=== PATIENT | male | born 1960 | race Asian ===

== ENCOUNTER 2020-10-24 09:46 | Outpatient (RCR) | payer OTHER, SELFPAY ==
--- NOTE | 2020-10-24 12:22 | MHC.PT.EP ---
[facility] [place] Office [place] Office [place] Office [address] [place] [address] Dr Nathalie Feldman [address] [phone] F: [phone] F: [phone] F: [phone] F: [phone] Physical Therapy Plan of Care Date of Evaluation: 10/24/20 Date of Surgery: NA Diagnosis: STRAIN OF MUSCLE, FASCIA AND TENDON OF OTHER PARTS OF BICEPS, RIGHT ARM Assessment: Pt IS 60 YO M REFERRED TO PT FROM DR SLOAN WITH R BICEP STRAIN WHICH HAPPENED LAST THURSDAY WHILE LIFTING A HEAVY BAG OF ONIONS. Pt PRESENTS WITH TRUDY DEFORMITY WITH LIMITED STRENGTH IN R UE. REPORTS PAIN R BICEP MM WITH TTP. ROM IN ELBOW FOR FLEX AND EXT IS WITHIN NORMAL LIMITS, BUT THERE IS PAIN AT BOTH END RANGES. SPOKE WITH DR SLOAN AND ZAHRA (AT [facility]) RE MRI AND ORTHO CONSULT CARLEY (IF SURGERY IS INDICATED, IT NEEDS TO BE DONE WITHIN ABOUT A 2 WEEK TIME FRAME). Pt DID HAVE SOME RELIEF WITH ST WORK, IASTM AND KT FOR R BICEP. SHOULD BENEFIT FROM PT TO HELP IMPROVE R UE FUNCTIONAL MOBILITY WHETHER OR NOT HE HAS SURGERY. Frequency and Duration: The patient will be seen 2X/WK X 4 WKS Short Term Goals: 1. DECREASED PAIN R ELBOW WITH FULL ELBOW FLEX AND EXT 2. Pt TO BEGIN GENTLE ROM STRETCHES FOR R SHLDER INDICATED 3. 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 INCREASED STRENGTH R UE AT LEAST 1 MM GRADE 2. I HEP WITH DC EX PLAN 3. R SHLDER ROM FOR FLEX AND ABD TO AT LEAST 160 DEGREES EA Treatment Plan: Modalities to reduce pain, spasms and effusion. Manual therapy to restore motion and function. Therapeutic exercise to improve strength and flexibility. Neuromuscular re-education for posture and balance. Therapeutic activities to return to functional activities of daily living. Electronically signed by: LAURA ROBERT PT Please sign and return to therapist. Thank you for your referral.
--- NOTE | 2020-10-24 12:22 | MHC.PT.PR ---
[facility] [place] Office [place] Office [place] Office [address] Nathalie Feldman [address] [phone] F: [phone] F: [phone] F: [phone] F: [phone] Physical Therapy Progress Note Diagnosis: STRAIN OF MUSCLE, FASCIA AND TENDON OF OTHER PARTS OF BICEPS, RIGHT ARM Date of Surgery: NA Date of Evaluation: 10/24/20 Treatments to Date: 1 Cancellations to Date: No Shows to Date: Subjective: Pt REPORTS LIFTED HEAVY BAG LAST THURSDAY AND FELT PAIN R BICEPS. Pain Score and Location: 4 R BICEPS Objective Measures: PT EVAL Assessment: Pt IS 60 YO RHD M REFERRED TO PT FROM DR SLOAN WITH R BICEPS STRAIN WHICH HAPPENED LAST THURSDAY WHILE LIFTIN A HEAVY BAG OF ONIONS. Pt PRESENTS WITH TRUDY DEFORMITY WITH LIMITED STRENGTH IN R UE. REPORTS PAIN R BICEP MM WITH TTP. ROM R ELBOW FOR FLEX AND EXT IS WNLS BUT THERE IS PAIN AT BOTH END RANGES. SPOKE WITH DR SLOAN AND ZAHRA ([facility]) RE MRI/ORTHO CONSULT CARLEY (IF SURGERY IS INDICATED IT NEEDS TO BE DONE WITHIN A 2 WEEK TIME FRAME). Pt DID HAVE SOME RELIEF WITH ST WORK/IASTM AND KT R BICEP. Pt SHOULD BENEFIT FROM PT TO HELP IMPROVE R UE FUNCTIONAL MOBILITY WHETHER OR NOT HE HAS SURGERY PT Plan: Frequency and Duration: The patient will be seen 2X/WK X 4 WKS Treatment Plan: Therapeutic Exercise Dynamic Therapeutic Activities Neuromuscular Re-ed Manual Therapies Taping Home Exercise Program Patient Education Hot or Cold Pack Reviewed/ Agreed with Student Documentation: Therapist: Thank you once again for your referral.
--- NOTE | 2020-11-21 15:25 | MHC.PT.DC ---
[facility] [place] Office [place] Office [place] Office [address] Nathalie Feldman [address] [phone] F: [phone] F: [phone] F: [phone] F: [phone] Physical Therapy Discharge Report Diagnosis: STRAIN OF MUSCLE, FASCIA AND TENDON OF OTHER PARTS OF BICEPS, RIGHT ARM Date of Surgery: NA Date of Evaluation: 10/24/20 Date of Discharge: 11/21/20 Treatments to Date: 1 Cancellations to Date: No Shows to Date: Discharge Status: Patient Elected to Stop Discharge Summary: Pt SEEN FOR IN EVAL ONLY. NO FURTHER APPTS. THIS PT CALLED Pt ON 11/21/20. HE SAYS HE IS FEELING BETTER AND DOES NOT NEED ANY MORE PT. AT INIT EVAL:Pt IS 60 YO RHD M REFERRED TO PT FROM DR SLOAN WITH R BICEPS STRAIN WHICH HAPPENED LAST THURSDAY WHILE LIFTIN A HEAVY BAG OF ONIONS. Pt PRESENTS WITH TRUDY DEFORMITY WITH LIMITED STRENGTH IN R UE. REPORTS PAIN R BICEP MM WITH TTP. ROM R ELBOW FOR FLEX AND EXT IS WNLS BUT THERE IS PAIN AT BOTH END RANGES. SPOKE WITH DR SLOAN AND ZAHRA ([facility]) RE MRI/ORTHO CONSULT CARLEY (IF SURGERY IS INDICATED IT NEEDS TO BE DONE WITHIN A 2 WEEK TIME FRAME). Pt DID HAVE SOME RELIEF WITH ST WORK/IASTM AND KT R BICEP. Pt SHOULD BENEFIT FROM PT TO HELP IMPROVE R UE FUNCTIONAL MOBILITY WHETHER OR NOT HE HAS SURGERY Electronically signed by: LAURA ROBERT PT Please sign and return to therapist. Thank you for your referral.
--- NOTE | 2020-11-21 15:25 | MHC.PT.DC ---
[facility] [place] Office [place] Office [place] Office [address] Nathalie Feldman [address] [phone] F: [phone] F: [phone] F: [phone] F: [phone] Physical Therapy Discharge Report Diagnosis: STRAIN OF MUSCLE, FASCIA AND TENDON OF OTHER PARTS OF BICEPS, RIGHT ARM Date of Surgery: NA Date of Evaluation: 10/24/20 Date of Discharge: 11/21/20 Treatments to Date: 1 Cancellations to Date: No Shows to Date: Discharge Status: Patient Elected to Stop Discharge Summary: Pt SEEN FOR IN EVAL ONLY. NO FURTHER APPTS. THIS PT CALLED Pt ON 11/21/20. HE SAYS HE IS FEELING BETTER AND DOES NOT NEED ANY MORE PT. AT INIT EVAL:Pt IS 60 YO RHD M REFERRED TO PT FROM DR SLOAN WITH R BICEPS STRAIN WHICH HAPPENED LAST THURSDAY WHILE LIFTIN A HEAVY BAG OF ONIONS. Pt PRESENTS WITH TRUDY DEFORMITY WITH LIMITED STRENGTH IN R UE. REPORTS PAIN R BICEP MM WITH TTP. ROM R ELBOW FOR FLEX AND EXT IS WNLS BUT THERE IS PAIN AT BOTH END RANGES. SPOKE WITH DR SLOAN AND ZAHRA ([facility]) RE MRI/ORTHO CONSULT CARLEY (IF SURGERY IS INDICATED IT NEEDS TO BE DONE WITHIN A 2 WEEK TIME FRAME). Pt DID HAVE SOME RELIEF WITH ST WORK/IASTM AND KT R BICEP. Pt SHOULD BENEFIT FROM PT TO HELP IMPROVE R UE FUNCTIONAL MOBILITY WHETHER OR NOT HE HAS SURGERY Electronically signed by: LAURA ROBERT PT Please sign and return to therapist. Thank you for your referral.
== END 2020-11-21 15:26 | disposition other institution (70) ==
LOC: HO.PTWFD 09:46
PROVIDERS: Visit Provider Family Medicine
DX: S46.211D Strain of muscle, fascia and tendon of other parts of biceps, right arm, subsequent encounter (principal)
CPT/HCPCS: 97140; 97162; 97535

== ENCOUNTER → 2020-10-25 12:55 | Outpatient (BNVA) | payer OTHER, SELFPAY | PROVIDERS: PCP Family Medicine; Visit Provider Orthopaedic Surgery | DX: Z13.89 Encounter for screening for other disorder (principal) | CPT/HCPCS: 99202 ==

== ENCOUNTER 2020-10-26 14:09 | Outpatient (REF) | payer OTHER, SELFPAY | END 2020-10-26 14:10 | disposition home or self-care (01) | LOC: HO.LNP 14:09 | PROVIDERS: Visit Provider Family Medicine | DX: Z20.822 Contact with and (suspected) exposure to COVID-19 (principal); R05 Cough | CPT/HCPCS: U0003; U0005 ==

== ENCOUNTER 2020-11-08 09:55 | Outpatient (REF) | payer OTHER, SELFPAY ==
[2020-11-08 11:54] LABS: Erythrocyte Sedimentation Rate 5 MM/HR (0-15)
== END 2020-11-08 09:56 | disposition home or self-care (01) ==
LOC: HO.WFDLDS 09:55
PROVIDERS: Visit Provider Family Medicine
DX: Z00.00 Encounter for general adult medical examination without abnormal findings (principal)
CPT/HCPCS: 36415; 85652

== ENCOUNTER 2023-08-03 13:04 | Outpatient (REF) | payer OTHER, SELFPAY ==
--- NOTE | 2023-08-04 09:08 | MHC.AU.MED ---
Medical Clearance for Hearing Instrumentation Date: 08/03/23 Patient Name: Sofi Sol Date of : 1960 Primary Care Provider: Riccardo Verma MD We have seen your patient on 08/03/23 and have determined that they are a candidate for amplification (See accompanying report). Specifically, they would benefit from: Hearing aid use in both ears There is a statute that addresses Medical Evaluation Requirements prior to fitting a patient with a hearing aid. According to [place] statute 265 CMR:6.03(1), (a) General. Except as provided in 265 CMR 6.03(1)(b), a hearing officer shall not sell a hearing aid unless the prospective user has presented to the hearing officer a written statement signed by a licensed physician that states that the patient's hearing loss has been medically evaluated and the patient may be considered a candidate for a hearing aid. The medical evaluation must have taken place within the preceding six months. Please note: Due to the [place] Statute referenced above, we cannot accept a signature other than that of a licensed physician. HOP SEPARATOR and PA signatures cannot be accepted. I am in agreement with the above recommendation. There is no medical contraindication for hearing instrumentation. Physician Signature Date Physician Name (Printed)
--- NOTE | 2023-08-04 09:32 | MHC.AU.HA1 ---
Hearing Aid Evaluation Date of Visit: 08/03/23 Historical Information: Description of Hearing: Mild sloping to moderate sensorineural hearing loss, bilaterally Summary: Sofi is hesitant towards hearing aids; however, he is willing to try to help ease some of his communication difficulties. Sofi reported his insurance will be changing in October as he turns 63. He is unsure of which specific insurance he will have at that time. His current insurance covers hearing aids; however, discussed the need to be fit before his insurance changes and that depending on his future insurance, there may be [id number] after the first year. Sofi currently works at a [employer]. Although it is not particularly busy, he needs to communicate with customers. Otherwise, he primarily stays home, interacts with his and children, and watches television. Sofi was open to trialling any style of device that was recommended. Will trial rechargeable RITEs compatible with his iPhone, starting with domes; however, discussed option to add custom ear mold, if needed. Hearing Aid Prescription: Based on the individual?s shared listening needs, communication environments, dexterity, desire for connectivity, and personal preferences, the following prescription for amplification has been made: Right ear: Make, Model, Color: Oticon REAL 2 miniRITE-R Color: Steel Carpenter Battery Size: Rechargeable Load Test Mechanic/Slim Tube: 2/85 Type of Earmold/Dome/CShell/SlimTip: 8 mm double alicea dome Left ear: Left ear prescription to be same as Right Hearing Aid above: Make, Model, Color: Oticon REAL 2 miniRITE-R Color: Steel Carpenter Battery Size: Rechargeable Load Test Mechanic/Slim Tube: 2/85 Type of Earmold/Dome/CShell/SlimTip: 8 mm double alicea dome Accessories/Assistive Technology: Corporate Concierge Plan of Care: Patient wishes to purchase hearing aids as prescribed Action Taken/Action Needed: Medical Clearance to be requested from PCP/ENT. Hearing Instrument Fitting to be scheduled when materials arrive Primary Diagnosis: H90.3 Bilateral Sensorineural Hearing Loss Signature: Provider: Dilshad Guadarrama, [facility]
== END 2023-08-03 13:05 | disposition home or self-care (01) ==
LOC: HO.SH 13:04
PROVIDERS: Visit Provider Hospitalist
DX: Z01.118 Encounter for examination of ears and hearing with other abnormal findings (principal); Z46.1 Encounter for fitting and adjustment of hearing aid; H90.3 Sensorineural hearing loss, bilateral
CPT/HCPCS: 92557; 92591

== ENCOUNTER 2023-09-23 15:02 | Outpatient (REF) | payer MEDICAID, SELFPAY ==
--- NOTE | 2023-09-24 08:44 | MHC.AU.HA2 ---
Hearing Instrument Fitting- Adult- Binaural Date of Visit: 09/23/23 Hearing Instruments Dispensed: Right Ear: Make, Model, Color, Serial Number: Oticon REAL 2 miniRITE-R Madi Carpenter SN [id number] Playground Official Repair Warranty: 10/09/2026 Playground Official Loss and Damage Warranty: 10/09/2026 [facility] Service Plan: 09/23/24 Battery Size: Rechargeable Sales Expert/Slim Tube: 2/85 Earmold/Dome/CShell/SlimTip: 8 mm double alicea dome Type of Wax Guard: ProWax miniFit Left Ear: Make, Model, Color, Serial Number: Oticon REAL 2 miniRITE-R Madi Carpenter SN [id number] Playground Official Repair Warranty: 10/09/2026 Playground Official Loss and Damage Warranty: 10/09/2026 [facility] Service Plan: 09/23/24 Battery Size: Rechargeable Sales Expert/Slim Tube: 2/85 Earmold/Dome/CShell/SlimTip: 8 mm double alicea dome Type of Wax Guard: ProWax miniFit Accessories/Assistive Technology: Oticon Tablet Repair SN [id number] Summary of Fitting: Sofi visited for fitting with Real 2 miniRITE Rs. Programmed and verified to DSL 5.0 targets, decreased to level 2 with auto adjust on for 1 month. Reviewed basics of use, cleaning, charging, insertion/removal. Encouraged to wear as much as possible and reasons to do so, as he stated he plans to only wear for TV. Will discuss pairing with phone at follow up appointment. Return in 2-3 weeks for follow up. Recommendations: Recommendations: A hearing instrument follow-up is recommended in 2-3 weeks. Diagnosis Code(s): Primary Diagnosis: H90.3 Bilateral Sensorineural Hearing Loss Signature: Provider: Ronnie Burnham, CCC-A
== END 2023-09-23 15:03 | disposition home or self-care (01) ==
LOC: HO.HAP 15:02
PROVIDERS: Visit Provider Hospitalist
DX: Z46.1 Encounter for fitting and adjustment of hearing aid (principal); H90.3 Sensorineural hearing loss, bilateral
CPT/HCPCS: V5011; V5020; V5160; V5261

== ENCOUNTER 2023-10-16 13:40 | Outpatient (REF) | payer MEDICARE, MEDICAID, SELFPAY | END 2023-10-16 13:41 | disposition home or self-care (01) | LOC: HO.HAP 13:40 | PROVIDERS: Visit Provider Family Medicine | DX: Z13.89 Encounter for screening for other disorder (principal) ==

== ENCOUNTER 2024-02-16 10:41 | Outpatient (REF) | payer MEDICARE, MEDICAID, SELFPAY ==
--- NOTE | ~2024-02-16 | XR_ITS ---
EXAMINATION: XR KNEE, RIGHT CLINICAL INFORMATION: Pain in right knee. COMPARISON: None available. TECHNIQUE: Three views of the right knee. FINDINGS: Small joint effusion. Ocgfzdor-ot-okdwvc narrowing of the medial compartment with subchondral sclerosis and small medial marginal osteophytes. Tiny calcifications in the soft tissues medial to the medial femoral condyle. Subtle subchondral lucency along the medial femoral condyle, possibly related to an osteochondral defect. Tiny posterior patellar osteophytes. XR/XR knee RT 3V IMPRESSION: 1. Anprfjpo-el-hwkyme degenerative changes in the medial compartment. 2. Subtle subchondral lucency along the medial femoral condyle, possibly related to an osteochondral defect.
== END 2024-02-16 10:42 | disposition home or self-care (01) ==
LOC: HO.HOSX 10:41
PROVIDERS: Visit Provider Orthopaedic Surgery
DX: M25.561 Pain in right knee (principal)
CPT/HCPCS: 73562

== ENCOUNTER 2024-02-17 09:06 | Outpatient (AMB) | payer MEDICARE, MEDICAID, SELFPAY ==
--- NOTE | 2024-02-17 09:12 | A.OFFVIS_ITS ---
Intake Visit Reasons: Right knee pain Intake Note: Sofi is a 63 year old male who presents to the office today with complaints of progressively worsening right knee pain and giving way. The patient states that his symptoms have been getting worse for almost 1 year. Most of the pain is along the medial aspect of his knee. He states that his right knee will give out several times per day. Has tried Tylenol and anti-inflammatory medicines which gave him minimal relief. He has also done 9 weeks of physical therapy which aggravated his pain. He was sent to physical therapy by his primary care doctor. He has failed the last 6 weeks of conservative treatment as well. Was given a cortisone injection several months ago which gave him no relief. The patient states that his pain is present every day. At this point the patient's right knee pain is interfering with his activities of daily living and his ability to sleep well through the night. The patient states that he was scheduled to undergo an MRI of his right knee but that there was ?an insurance issue?. 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- [employer] Physical Exam Const Other: Well-nourished well-developed very friendly male awake alert and oriented x3 in no acute distress Extrem Other: Bilateral lower extremity examination shows good capillary refill, no skin lesions noted, normal sensation light touch Right knee examination shows a minimal effusion, mild crepitus with range of motion, tenderness along his medial joint line, positive Errol's test, no instability Results Reviewed Results Reviewed: X-rays of the patient's right knee show mild to moderate joint space narrowing, no acute bony abnormalities, possible avascular necrosis lesion of the medial femoral condyle Assessment & Plan Assessment & Plan (1) Right knee pain: Code(s): M25.561 - Pain in right knee Category: Medical Plan Mr. 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 Thus, I will send the patient for an MRI of his right knee for further evaluation. I will see him back once the MRI is completed to discuss the findings and treatment options. Feel free to call me at any time should questions regarding his orthopedic management arise. I spent 20 minutes in reviewing the patient's records and imaging studies, seeing the patient and documenting in the medical record. Orders: Orders XR knee RT 3V Today M25.561 - Pain in right knee MR knee RT wo con Today M25.561 - Pain in right knee Coding Level of Care Code Est Pt Level 3 (28791) Diagnoses Right knee pain M25.561
== END 2024-02-17 09:34 | disposition home or self-care (01) ==
PROVIDERS: PCP Family Medicine; Visit Provider Orthopaedic Surgery
DX: M25.561 Pain in right knee (principal)
CPT/HCPCS: 99213

== ENCOUNTER 2024-02-17 09:40 | Outpatient (REF) | payer MEDICARE, MEDICAID, SELFPAY | END 2024-02-17 09:41 | disposition home or self-care (01) | LOC: HO.HOSX 09:40 | PROVIDERS: Visit Provider Orthopaedic Surgery | DX: M25.561 Pain in right knee (principal) | CPT/HCPCS: 99212 ==

== ENCOUNTER 2024-03-02 14:29 | Outpatient (AMB) | payer MEDICARE, MEDICAID, SELFPAY ==
--- NOTE | 2024-03-02 14:32 | A.OFFVIS_ITS ---
Intake Visit Reasons: OV - Right Knee MRI Review - [facility] Intake Note: Sofi is a 63 year old male who presents with complaints of progressively worsening right knee pain. The patient describes his pain as sharp and severe in nature. Most of the pain is along the medial aspect of his knee. His pain has gotten worse over the last year in spite of continued non operative treatments. He has tried Tylenol and anti-inflammatory medicines which gave him minimal relief. He has also done physical therapy exercises which aggravated his pain. He has failed the last 3 months of conservative treatment. He has had injections in the past which gave him no relief. The patient has difficulty walking even short distances because of his pain. At this point his right knee pain is interfering with his activities of daily living and his ability to sleep well through the night. 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 [employer] Physical Exam Const Other: Well-nourished well-developed very friendly male awake alert and oriented x3 in no acute distress Extrem Other: Bilateral lower extremity examination shows good capillary refill, no skin lesions noted, normal sensation light touch Right knee examination shows a minimal effusion, palpable crepitus with range of motion, pain with range of motion, range of motion from -3 degrees to 115 degrees, no instability Results Reviewed Results Reviewed: X-rays of the patient's right knee show severe joint space narrowing, subchondral sclerosis, osteophyte formation, no acute bony abnormalities MRI of the patient's right knee shows end-stage degenerative joint disease most significant in the medial compartment and patellofemoral joint, chronic defect of the medial femoral condyle consistent with chronic osteochondritis desiccans Assessment & Plan Assessment & Plan (1) Arthritis of right knee: Code(s): M17.11 - Unilateral primary osteoarthritis, right knee Category: Medical Plan Mr. Sol presents with progressively worsening right knee pain due to end- stage degenerative joint disease. I had a lengthy discussion with the patient regarding the treatment options. At this point he has failed continued non operative treatments. The risks and benefits of right total knee replacement surgery were discussed at length with the patient. The patient wishes to proceed with surgery. He will be scheduled for next available date. He will follow-up as instructed. Feel free to call me at any time should questions regarding his orthopedic management arise. Thank you very much for asking me to see this very friendly gentleman. I spent 20 minutes in reviewing the patient's records and imaging studies, seeing the patient and documenting in the medical record. Coding Level of Care Code Est Pt Level 3 (40541) Diagnoses Arthritis of right knee M17.11
== END 2024-03-02 14:42 | disposition home or self-care (01) ==
PROVIDERS: PCP Family Medicine; Visit Provider Orthopaedic Surgery
DX: M17.11 Unilateral primary osteoarthritis, right knee (principal)
CPT/HCPCS: 99214

== ENCOUNTER → 2024-03-02 14:29 | Outpatient (BNVA) | payer MEDICARE, MEDICAID, SELFPAY | PROVIDERS: PCP Family Medicine; Visit Provider Orthopaedic Surgery | DX: M17.11 Unilateral primary osteoarthritis, right knee (principal) | CPT/HCPCS: 99212 ==

== ENCOUNTER → 2024-03-11 08:55 | Outpatient (BNVA) | payer MEDICARE, MEDICAID, SELFPAY | PROVIDERS: PCP Family Medicine | DX: Z01.818 Encounter for other preprocedural examination (principal) ==

== ENCOUNTER 2024-03-30 15:43 | Outpatient (REF) | payer MEDICARE, MEDICAID, SELFPAY ==
[2024-03-30 15:54] LABS: MANUAL DIFF FLAG NO
[2024-03-30 17:08] LABS: Basophils Absolute Auto 0.1 X10*3/uL (0.0-0.2); Basophils Percent Auto 0.8 % (0-2); Eosinophils Absolute Auto 0.2 X10*3/uL (0.0-0.4); Eosinophils Percent Auto 2.4 % (0-4); Hemoglobin 11.6 g/dl (14.0-18.0); Imm Gran Abs Auto 0.03 X10*3/uL (0.00-0.03); Imm Gran Pct Auto 0.4 % (0.0-0.4); Lymphocytes Absolute Auto 2.1 X10*3/uL (1.2-4.9); Lymphocytes Percent Auto 28.2 % (20-40); Mean Corpuscular HGB Conc 32.2 g/dl (31.0-36.0); Mean Corpuscular Hemoglobin 24.1 pg (27.0-33.0); Mean Corpuscular Volume 74.8 fL (80.0-98.0); Mean Platelet Volume 11.2 fL (9.4-12.4); Monocytes Absolute Auto 0.6 X10*3/uL (0.1-1.2); Monocytes Percent Auto 8.4 % (2-11); Neutrophils Absolute Auto 4.5 x10*3/uL (2.0-8.3); Neutrophils Percent Auto 59.8 % (45-73); Platelet Count 297 X10*3/uL (160-400); Red Blood Count 4.81 X10*6/uL (4.60-5.80); Red Cell Distribution Width 14.5 % (11.0-16.0); White Blood Count 7.5 X10*3/uL (4.8-10.8)
[2024-03-30 17:45] LABS: Anion Gap 12 (12-20); Blood Urea Nitrogen 24 mg/dL (9-16); Calcium 9.7 mg/dL (8.4-10.2); Carbon Dioxide 26 mmol/L (22-29); Chloride 104 mmol/L (96-108); Estimated Glomerular Filt Rate > 60; Potassium 4.8 mmol/L (3.3-5.1); Sodium 137 mmol/L (135-145)
[2024-03-30 17:50] LABS: Glucose Random 376 mg/dL (60-115)
[2024-03-31 05:17] LABS: Estimated Average Glucose 177 mg/dL; Hemoglobin A1c % 7.8 % (<6.0)
== END 2024-03-30 15:44 | disposition home or self-care (01) ==
LOC: HO.LAB 15:43
PROVIDERS: PCP Internal Medicine; Visit Provider Internal Medicine
DX: H00.014 Hordeolum externum left upper eyelid (principal); I10 Essential (primary) hypertension; M17.11 Unilateral primary osteoarthritis, right knee
CPT/HCPCS: 36415; 80048; 83036; 85025

== ENCOUNTER 2024-04-07 14:08 | Outpatient (AMB) | payer MEDICARE, MEDICAID, SELFPAY ==
--- NOTE | 2024-04-07 14:08 | MHC.OFFVIS ---
Intake Visit Reasons: Pre-Op: R TKA w/ 04/11/24 Intake Note: Mr. Sol is a 63 year old male who presents with complaints of progressively worsening right knee pain. The patient describes his pain as sharp and severe in nature. Most of the pain is along the medial aspect of his knee. His pain has gotten worse over the last year in spite of continued non operative treatments. He has tried Tylenol and anti-inflammatory medicines which gave him minimal relief. He has also done physical therapy exercises which aggravated his pain. He has failed the last 3 months of conservative treatment. He has had injections in the past which gave him no relief. The patient has difficulty walking even short distances because of his pain. At this point his right knee pain is interfering with his activities of daily living and his ability to sleep well through the night. 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 [employer] Physical Exam Const Other: Well-nourished well-developed very friendly male awake alert and oriented x3 in no acute distress Extrem Other: Bilateral lower extremity examination shows good capillary refill, no skin lesions noted, normal sensation light touch Right knee examination shows a mild effusion, palpable crepitus with range of motion, pain with range of motion, range of motion from -3 degrees to 115 degrees, no instability Results Reviewed Results Reviewed: X-rays of the patient's right knee show end-stage degenerative joint disease with grade 4 [id number] arthritis, subchondral sclerosis, osteophyte formation, no acute bony abnormalities Assessment & Plan Assessment & Plan (1) Arthritis of right knee: Code(s): M17.11 - Unilateral primary osteoarthritis, right knee Category: Medical Plan Mr. Sol presents with progressively worsening right knee pain due to end-stage degenerative joint disease. I had a lengthy discussion with the patient regarding the treatment options. At this point has failed continued non operative treatments. The risks and benefits of right total knee replacement surgery were discussed at length with the patient. The patient wishes to proceed with surgery. shipping services sales representative will be consulted following his surgery for home physical therapy and nursing. The patient will follow-up as instructed. Feel free to call me at any time should questions regarding his orthopedic management arise. I spent 21 minutes in reviewing the patient's records and imaging studies, seeing the patient and documenting in the medical record. Coding Level of Care Code Est Pt Level 3 (41328) Diagnoses Arthritis of right knee M17.11
== END 2024-04-07 14:26 | disposition home or self-care (01) ==
PROVIDERS: PCP Family Medicine; Visit Provider Orthopaedic Surgery
DX: M17.11 Unilateral primary osteoarthritis, right knee (principal)
CPT/HCPCS: 99024

== ENCOUNTER → 2024-04-07 14:08 | Outpatient (BNVA) | payer MEDICARE, MEDICAID, SELFPAY | PROVIDERS: PCP Family Medicine; Visit Provider Orthopaedic Surgery | DX: M17.11 Unilateral primary osteoarthritis, right knee (principal) | CPT/HCPCS: 99212 ==

== ENCOUNTER 2024-04-11 06:01 | Day surgery (SDC) | payer MEDICARE, MEDICAID, SELFPAY ==
[2024-04-01 11:57] VITALS: BP 168/80; PULSE 64; RESP 17; O2SAT 98; BMI 30.7
--- NOTE | 2024-04-01 12:15 | P.CONAN_ITS ---
Documented by User: Keara Lock NP 04/08/24 09:41 HPI - Anesthesia Eval Consult details Narrative: 63yo M for Right Knee Replacement Total Medically optimized per PCP No recent illness No CP/SOB with no limitations DM: FBS ~135 PMFSH Active Problems Active Problems: All Active Problems Arthritis of right knee (Acute) Right knee pain (Acute) Tenosynovitis of both hands (Acute) Hyperlipidemia (Acute) Diabetes type 2, controlled (Acute) Essential hypertension (Acute) Laboratory examination ordered as part of a routine general medical examination (Acute) Cough (Acute) Traumatic partial tear of right biceps tendon (Acute) Strain of right biceps (Acute) Past Medical History Medical History Arthritis HTN (hypertension) High cholesterol Diabetes Family History Family history of problems with anesthesia: No Surgical History Surgical History H/O colonoscopy No pertinent past surgical history History of Problems with Anesthesia: No (Only rec'd IV) Social History Social History Are you a primary personal care worker to a significant other at home: No Do you presently have visiting nurse or other home services: No Alcohol intake: former Patient Tobacco Use Status: Never used Tobacco Use of substances other than those prescribed or required for medical reasons: No Have you been hit, kicked, punched, or otherwise hurt by someone within the past year? 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- [employer] Allergies Allergy/AdvReac Type Severity Reaction Status Date / Time No Known Allergies Allergy Verified 04/11/24 08:44 Home Medications ?Medication ?Instructions ?Recorded ?Confirmed ?Last Taken ?Type acetaminophen 500 mg tablet 1,000 mg PO Q8H PRN Pain 04/01/24 04/11/24 Unknown History atorvastatin 40 mg tablet 40 mg PO BEDTIME 04/01/24 04/11/24 04/08/24 History insulin glargine 100 unit/mL (3 25 unit subcut BEDTIME 04/01/24 04/11/24 04/10/24 20:00 History mL) subcutaneous pen (Lantus 12 units Solostar U-100 Insulin) lisinopril 20 1 tab PO DAILY 04/01/24 04/11/24 04/08/24 History mg-hydrochlorothiazide 25 mg tablet Mounjaro 04/08/24 04/04/24 History amlodipine 5 mg tablet 5 mg PO DAILY 04/08/24 04/11/24 04/08/24 History Exam Height,Weight and Vital Signs: Height 5 ft 7 in Weight 88.904 kg Last Vital Signs Pulse 64 04/01/24 11:57 Resp 17 04/01/24 11:57 BP 168/80 H 04/01/24 11:57 Pulse Ox 98 04/01/24 11:57 O2 Del Method Room Air 04/01/24 11:57 Pertinent Lab Results Pertinent Lab Results: Laboratory Tests 03/30/24 15:52 WBC 7.5 Hgb 11.6 L Hct 36.0 L Plt Count 297 Sodium 137 Potassium 4.8 Chloride 104 Carbon Dioxide 26 BUN 24 H Creatinine 1.20 Laboratory Tests 03/30/24 15:52 Hemoglobin A1c % 7.8 H Narrative Narrative: EKG 02/2024 SR with marked SA at 73 Airway Mallampati Class: IV TM Dist: >3cm Neck ROM: Full Loose/Missing/Broken Teeth: Yes (1 x lower left molar) Heart: RRR Lungs: CTAB Assessment and Plan Assessment Anesthesia Assessment: Anesthesia Plan Discussed and PAT Visit Final Anesthetic Review Family History of Problems with Anesthesia: No History of Problems with Anesthesia: No (Only rec'd IV) Documented by User: Ally Medina MD 04/11/24 12:45 HPI - Anesthesia Eval Consult details Narrative: 63yo M for Right Knee Replacement Total Medically optimized per PCP No recent illness No CP/SOB with no limitations DM: FBS ~135 04/11/24: Patient has not taken any of his BP, DM meds for 4 days ? Poor diabetic control Random BS 376 (03/30/24) HbA1c 7.8 Anesthesia Pre-Procedure Meds Is the patient on any of the following meds?: GLP1/DPP4 (Last dose of Mounjaro 04/04/24) If yes to any meds - educate patient: Pt education - increased risk of aspiration and/or euvolemic DKA [facility] Past Medical History Medical History Arthritis HTN (hypertension) High cholesterol Diabetes Family History Family history of problems with anesthesia: No Surgical History Surgical History H/O colonoscopy No pertinent past surgical history History of Problems with Anesthesia: No Social History Social History Are you a primary personal care worker to a significant other at home: No Do you presently have visiting nurse or other home services: No Alcohol intake: former Patient Tobacco Use Status: Never used Tobacco Use of substances other than those prescribed or required for medical reasons: No Have you been hit, kicked, punched, or otherwise hurt by someone within the past year? 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- [employer] Allergies Allergy/AdvReac Type Severity Reaction Status Date / Time No Known Allergies Allergy Verified 04/11/24 08:44 Home Medications ?Medication ?Instructions ?Recorded ?Confirmed ?Last Taken ?Type acetaminophen 500 mg tablet 1,000 mg PO Q8H PRN Pain 04/01/24 04/11/24 Unknown History atorvastatin 40 mg tablet 40 mg PO BEDTIME 04/01/24 04/11/24 04/08/24 History insulin glargine 100 unit/mL (3 25 unit subcut BEDTIME 04/01/24 04/11/24 04/10/24 20:00 History mL) subcutaneous pen (Lantus 12 units Solostar U-100 Insulin) lisinopril 20 1 tab PO DAILY 04/01/24 04/11/24 04/08/24 History mg-hydrochlorothiazide 25 mg tablet Mounjaro 04/08/24 04/04/24 History amlodipine 5 mg tablet 5 mg PO DAILY 04/08/24 04/11/24 04/08/24 History Exam Height,Weight and Vital Signs: Height 5 ft 7 in Weight 88.904 kg Last Vital Signs Pulse 64 04/01/24 11:57 Resp 17 04/01/24 11:57 BP 168/80 H 04/01/24 11:57 Pulse Ox 98 04/01/24 11:57 O2 Del Method Room Air 04/01/24 11:57 Vital Signs Temp Pulse Resp BP Pulse Ox O2 Del Method 04/11/24 09:18 98.9 F 64 16 146/66 H 100 Room Air Pertinent Lab Results Pertinent Lab Results: Laboratory Tests 03/30/24 15:52 WBC 7.5 Hgb 11.6 L Hct 36.0 L Plt Count 297 Sodium 137 Potassium 4.8 Chloride 104 Carbon Dioxide 26 BUN 24 H Creatinine 1.20 Laboratory Tests 03/30/24 15:52 Hemoglobin A1c % 7.8 H Lab Results 04/01/24 04/01/24 Range/Units 12:10 12:52 Nasal Screen MRSA (PCR) NEGATIVE (Negative) Nasal S. aureus Screen NEGATIVE (Negative) Nasal MRSA/S.aureus Interp SEE NOTE Blood Type AB Positive Antibody Screen NEGATIVE Lab Results 04/01/24 04/01/24 Range/Units 12:10 12:52 Nasal Screen MRSA (PCR) NEGATIVE (Negative) Nasal S. aureus Screen NEGATIVE (Negative) Nasal MRSA/S.aureus Interp SEE NOTE Blood Type AB Positive Antibody Screen NEGATIVE Airway Mallampati Class: III TM Dist: >3cm Neck ROM: Full Loose/Missing/Broken Teeth: Yes (Missing molars both sides top) Heart: RRR Lungs: CTAB Assessment and Plan Assessment Anesthesia Assessment: Anesthesia Plan Discussed, PAT Visit and Chart Reviewed Final Anesthetic Review Family History of Problems with Anesthesia: No History of Problems with Anesthesia: No NPO: Yes ASA Class: III Final Preanesthetic Review: No Changes in Pt Med Stat, Meds/Allgs Chart Reviewed, Consent Obtained/Reviewed and Anes Risks/Benef Reviewed Patient Risk: Intermediate Procedure Risk: Intermediate Assessment/Block/Sedation in SS: Assess/Block/Sedation-SS Anesthetic Plan Anesthetic Plan: Spinal and Regional Block (Right adductor canal and ipack blocks) Disposition: Standard PACU and Inp. Admit - Standard Bed
[2024-04-01 13:37] LABS: MRSA Nasal PCR NEGATIVE (Negative); SA Nasal PCR NEGATIVE (Negative)
[2024-04-11] VITALS (9 sets, daily range): BP systolic 124–154; BP diastolic 61–78; PULSE 64–85; RESP 12–20; TEMP 35.7–37.2; O2SAT 96–100
[2024-04-11] MEDS: Lactated Ringers 1,000 ML 100 ML IVCONT ×2 (09:44→14:29)
[2024-04-11] MEDS: vancomycin HCL 1,500 MG in 0.9 % Sodium Chloride 500 ML 333.33 MG IV ×2 (10:10→22:23)
--- NOTE | 2024-04-11 10:21 | PC.NURSE ---
Very small pinpoint open area on right kneecap. Area present before surgical prep/clipping by service planner. Dr. Loera at bedside to look at area. Okay and may proceed with surgery at this time. OR nurse made aware during report.
--- NOTE | 2024-04-11 10:26 | PC.NURSE ---
Patient stopped all medications, including BP meds, 3-[address] Medina made aware.
--- NOTE | 2024-04-11 13:07 | P.BOP_ITS ---
Brief Operative Note Date of Service: 04/11/24 Pre-op diagnosis: Right knee degenerative joint disease Post-op diagnosis: other (Bony fragments from the right femur, tibia and patella) Procedure: Right total knee arthroplasty Implants: [place] [employer] cemented posterior stabilized total knee arthroplasty with a femoral component size 4 right, tibial component size 5, polyethylene liner size 5 with 12 mm of thickness, an asymmetric patellar component size 29 with 9 mm of thickness Surgeon: Ozzie Loera MD Anesthesia: regional and spinal Was an Clinical Services Professional used for this Procedure?: No Clinical Services Professional: Paige Crook Estimated blood loss (mL): 200 Pathology: other (Bony fragments from the right femur, tibia and patella) Condition: stable Disposition: PACU
--- NOTE | 2024-04-11 13:08 | W.PM.OPN ---
Operative Note Operative Note Date of Service: 04/11/24 Narrative: After the patient was identified as Sofi Sol and his right knee was initialed by myself the patient was brought to the holding area where a right leg nerve block was performed by the anesthesiologist in routine fashion. The patient was then brought to the operating room where conscious sedation and spinal anesthesia were performed by the anesthesiologist in routine fashion. Because of the patient's diabetes he was given both IV Ancef and IV vancomycin preoperatively for infection prophylaxis. The patient's right lower extremity was prepped and draped in sterile fashion. A formal time-out was completed. The patient's right knee was placed onto a small bump to produce 30? of knee flexion during exposure. A #10 scalpel blade was used to make a midline incision extending 1 handbreadth proximal and distal to the patella. A second #10 scalpel blade was used to dissect the subcutaneous tissues down to the extensor mechanism. The subcutaneous flaps were maintained as thick as possible. A medial parapatellar arthrotomy was then performed using a #10 scalpel blade. The arthrotomy was begun just medial to the patellar tendon. The arthrotomy was continued 1 cm medial to the patella and then 5 mm into the medial aspect of the quadriceps tendon. The infrapatellar fat pad was partially excised to help with exposure. The soft tissue retinaculum was raised one-half of the way around the medial aspect of the proximal tibia. The patella was everted and the knee was flexed to 90?. There was no injury to the patellar tendon or its insertion onto the tibial tubercle. A drill bit was introduced into the distal aspect of the femur with a starting point 1 cm anterior to the origin of the posterior cruciate ligament. The intramedullary alignment nancy was put into place. The distal alignment guide was set for a 5 degree valgus cut. The distal cutting block was put into place and was held with 4 pins. The intramedullary alignment nancy was removed. Soft tissues were retracted in the distal femoral cut was made using a sagittal saw. The distal aspect of the femur measured to be a size 4 right component. Two drill holes were placed into the distal aspect of the femur marking 3? of external rotation. The distal cutting block was impacted into place and was held with 2 pins. Soft tissues were retracted and the 4 distal femoral cuts were made using a sagittal saw. Final notching and drilling of the distal aspect of the femur were performed in routine fashion. The trial femoral component was impacted into place. The knee was taken through a full range of motion. The patella tracked well. The patella was everted and the knee was flexed to 90?. The trial component was removed and our attention was directed to the proximal tibia. The medial and lateral menisci were removed using a #10 scalpel blade. A small rim of the medial meniscus was left intact to help prevent injury to the medial collateral ligament. A drill bit was then introduced into the proximal tibia with a starting point midway from medial to lateral and one-third of the way posteriorly. The intramedullary alignment nancy was put into place. The proximal tibial cutting guide was placed over the alignment nancy in line with the 2nd toe. The guide was held in place using 3 pins. The intramedullary alignment nancy was removed. Soft tissues were retracted and the proximal tibial cut was made using a sagittal saw. The proximal tibia measured to be a size 5 component. The tibial tray was put into place with a 12 mm liner. The femoral component was impacted into place. The knee was taken through a full range of motion. There was full flexion and full extension. There was no instability with varus or valgus stress testing with the knee in flexion or extension. The patella tracked well with no medially directed force. The rotation of the tibial tray was marked using electrocautery with the knee in extension. The patella was everted and the knee was flexed to 90?. All trial components were removed. The tibial tray was placed onto the proximal tibia in line with the electrocautery jacqueline. The tray was held in place using 3 pins. Final broaching of the proximal tibia was performed in routine fashion. The trial liner and trial femoral component were put into place. The knee was brought into extension and our attention was directed to the patella. The patella measured 25 mm in thickness. The patellar resection guide was set for a 10 mm resection. Soft tissues were retracted and the patella cut was made using a sagittal saw. The remaining patella measured 15 mm in thickness. The undersurface of the patella was measured to be a size asymmetric 29 component. Three drill holes were placed into the undersurface of the patella in routine fashion. The trial component was put into place. The knee was taken through a full range of motion. The patella tracked well. The patella was everted and the knee was flexed to 90?. All trial components were removed. The knee was once again brought into extension and placed onto a small bump. The knee joint was irrigated with copious amounts of normal saline solution via pulse lavage while the cement was mixed. The patella was everted and the knee was flexed to 90?. A small amount of cement was placed along the posterior aspects of the tibial and femoral components. Cement was then pressurized into the proximal tibia. The tibial component was impacted into place. Any excess cement was removed. The polyethylene liner was then impacted into place. Cement was then pressurized into the distal aspect of the femur. A small amount of cement was placed into the intramedullary canal to help reduce bleeding. The femoral component was impacted into place. Any excess cement was removed. The knee was then brought into extension. Cement was pressurized into the undersurface of the patella. The patellar component was put into place and was held with a patella clamp. Any excess cement was removed. Once the cement had hardened the patellar clamp was removed. The knee was taken through a full range of motion. There was full flexion and extension. There was no instability with varus or valgus stress testing with the knee in flexion or extension. The patella tracked well with no medially directed force. The knee joint was irrigated with copious amounts of normal saline solution via pulse lavage. Any significant bleeding vessels were coagulated. The patient's right knee was placed onto a small bump. The arthrotomy was closed with #2 Ethibond [id number] interrupted suture as well as #1 Vicryl [id number] interrupted suture. The wound was once again irrigated. The subcutaneous tissues were closed with 0 Vicryl and 2-0 Vicryl interrupted sutures. The skin was closed with skin yousuf. Dry sterile dressing and Josafat bandages were placed over the patient's right knee. The patient was awake and alert. The patient was transferred to the recovery room in stable condition.
[2024-04-11 13:18] LABS: Glucose, Whole Blood 177 mg/dL (60-115)
--- NOTE | 2024-04-11 14:35 | P.CONHOSP_ITS ---
History of Present Illness Data of Consult Service Date: 04/11/24 Requesting physician: Paige Crook Primary Care Provider: Deann Skaggs MD HPI Reason for consult: medical management 63 year old male with history of insuling dependent type 2 dm, htn, hld admitted to orthopedic surgery for OA R knee s/p R TKA with consult placed to hospitalist service for medical management. Reports pain in R knee, no other complaints. Post operatively vitals are stable, slightly hypertensive, no hypoxia. Does cigarette smoking, illicit drug use, or regular alcohol use. Review of Systems Review of Systems: General: No fevers, malaise, unintentional weight loss HEENT: No blurred vision, diplopia. No sore throat, nasal congestion, rhinorrhea, sinus pain, ear pain Cardiovascular: No chest pain, palpitations, or leg edema Respiratory: No shortness of breath, wheezing, cough GI: No abdominal pain, nausea, vomiting, diarrhea, constipation, melena, hematochezia : No dysuria, hematuria, increased urinary frequency, decreased urinary output MSK: No myalgia, back pain. 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- [employer] Allergies Allergy/AdvReac Type Severity Reaction Status Date / Time No Known Allergies Allergy Verified 04/11/24 08:44 Active Medications: Current Medications Acetaminophen (Acetaminophen 325 Mg Tablet) 650 mg PO Q6H PRN PRN Reason: Pain, Mild (Pain Scale 1-3), fever or headache Amlodipine Besylate (Amlodipine Besylate 5 Mg Tablet) 5 mg PO DAILY AZUCENA; Protocol Aspirin (Aspirin 325 Mg Tablet) 325 mg PO BID [facility] Atorvastatin Calcium (Atorvastatin Calcium 40 Mg Tablet) 40 mg PO BEDTIME [facility] Celecoxib (Celecoxib 200 Mg Capsule) 200 mg PO BID [facility] Docusate Sodium (Docusate Sodium 100 Mg Capsule) 100 mg PO BID [facility] Fentanyl (Fentanyl Citrate/Pf 100 Mcg/2 Ml Vial) 25 mcg IVPUSH Q5M PRN PRN Reason: Pain, Moderate(Pain Scale 4-6) Stop: 04/11/24 18:48 Gabapentin (Gabapentin 100 Mg Capsule) 100 mg PO BEDTIME [facility] Hydromorphone HCl (Hydromorphone Hcl 0.5 Mg/0.5 Ml Syringe) 0.25 mg IVPUSH Q5M PRN PRN Reason: Pain, Severe (Pain Scale 7-10) Stop: 04/11/24 18:48 Hydromorphone HCl (Hydromorphone Hcl 0.5 Mg/0.5 Ml Syringe) 0.25 mg IVPUSH Q4H PRN; Protocol PRN Reason: Pain, Severe (Pain Scale 7-10) Hydromorphone HCl (Hydromorphone Hcl 0.5 Mg/0.5 Ml Syringe) 0.5 mg IVPUSH Q4H PRN; Protocol PRN Reason: Pain, Severe (Pain Scale 7-10) Lactated Ringer's (Lr) 1,000 mls @ 100 mls/hr IVCONT .Q10H [facility] Last Admin: 04/11/24 14:29 Dose: 100 mls/hr Cefazolin Sodium/Dextrose (Ancef) 2 gm in 50 mls @ 100 mls/hr IV Q8H [facility] Stop: 04/12/24 04:00 Lactated Ringer's (Lr) 1,000 mls @ 100 mls/hr IVCONT .Q10H [facility] Vancomycin HCl 1,500 mg/ (Sodium Chloride) 500 mls @ 333.333 mls/hr IV POSTOP ONE Stop: 04/11/24 15:35 Insulin Glargine (Insulin Glargine,Hum.Rec.Anlog 100 Unit/Ml 10 Ml Vial) 25 unit SUBCUT BEDTIME [facility] Metformin HCl (Metformin Hcl 1,000 Mg Tablet) 1,000 mg PO BID [facility] Methocarbamol (Methocarbamol 500 Mg Tablet) 500 mg PO TID [facility] Non-Formulary Medication (Lisinopril-Hydrochlorothiazide) 1 tab PO DAILY [facility] Ondansetron HCl (Ondansetron Hcl 4 Mg/2 Ml Vial) 4 mg IVPUSH ONCE PRN PRN Reason: Nausea and Vomiting Stop: 04/11/24 18:49 Ondansetron HCl (Ondansetron Hcl 4 Mg/2 Ml Vial) 4 mg IVPUSH Q8H PRN PRN Reason: Nausea and Vomiting Oxycodone HCl (Oxycodone Hcl Immed Release 5 Mg Tablet) 5 mg PO ONCE PRE DISCHARGE PRN PRN Reason: Pre Discharge if no IV Access Stop: 04/11/24 18:49 Oxycodone HCl (Oxycodone Hcl Immed Release 5 Mg Tablet) 5 mg PO Q4H PRN PRN Reason: Pain, Moderate(Pain Scale 4-6) Oxycodone HCl (Oxycodone Hcl Immed Release 5 Mg Tablet) 10 mg PO Q4H PRN PRN Reason: Pain, Moderate(Pain Scale 4-6) Pharmacy Consult (Consult Rx Vancomycin Dosing) 1 each MISCELLANE DAILY PRN PRN Reason: Consult order Sodium Chloride (0.9 % Sodium Chloride Flush 3 Ml Syringe) [facility] Medications ?Medication ?Instructions ?Recorded ?Confirmed ?Last Taken ?Type acetaminophen 500 mg tablet 1,000 mg PO Q8H PRN Pain 04/01/24 04/11/24 Unknown History atorvastatin 40 mg tablet 40 mg PO BEDTIME 04/01/24 04/11/24 04/08/24 History insulin glargine 100 unit/mL (3 25 unit subcut BEDTIME 04/01/24 04/11/24 04/10/24 20:00 History mL) subcutaneous pen (Lantus 12 units Solostar U-100 Insulin) lisinopril 20 1 tab PO DAILY 04/01/24 04/11/24 04/08/24 History mg-hydrochlorothiazide 25 mg tablet Mounjaro 04/08/24 04/04/24 History amlodipine 5 mg tablet 5 mg PO DAILY 04/08/24 04/11/24 04/08/24 History Physical Exam Vital Signs and Narrative: Vital Signs: Last Vital Signs Temp 96.3 F L 04/11/24 14:26 Pulse 67 04/11/24 14:26 Resp 14 04/11/24 14:26 BP 151/78 H 04/11/24 14:26 Pulse Ox 98 04/11/24 14:26 O2 Del Method Room Air 04/11/24 14:26 BMI result Body Mass Index 30.0 Constitutional - Awake and Alert, No apparent distress Eyes - PERRLA, EOMI Cardiovascular - S1S2, RRR, No edema Respiratory - Normal lung expansion, Normal respiratory effort, No respiratory distress, CTA bilaterally Gastrointestinal - NT / ND; +BS; No rebound or guarding Extremities - no calf tenderness bilaterally, no swelling Skin - Warm/Dry Neurological - Alert & oriented x3 Psychological - Appropriate affect Results Labs Labs: Laboratory Results - last 24 hr 04/11/24 09:15 POC Glucose 177 H Assessment and Plan (1) Arthritis of right knee: Status: Acute Plan 63 year old male with history of insulin dependent type 2 dm, htn, hld admitted to orthopedic surgery for OA R knee s/p R TKA with consult placed to hospitalist service for medical management. #OA R knee s/p TKA POD 0 -plan per ortho surgery #Insulin dependent type 2 diabetes -poc glucose, diabetic diet -dose adjusted basal insulin, admelog on ss -continue metformin #HTN -hold lisinopril-hctz for now to prevent post op hypotension. Resume if needed -continue amlodipine #HLD -statin Thank you for allowing me to participate in this consult. Signing off at this time. Please do not hesitate to call for further questions or for any acute medical issues
[2024-04-11] MEDS: oxyCODONE HCl Immed Release 5 MG TABLET PO (15:11)
[2024-04-11] MEDS: methocarbamoL 500 MG TABLET PO ×2 (15:58→19:48)
[2024-04-11 16:26] LABS: Glucose, Whole Blood 215 mg/dL (60-115)
[2024-04-11] MEDS: Aspirin 325 MG TABLET PO ×2 (17:28→19:48)
[2024-04-11] MEDS: ceFAZolin Sodium/Dextrose,Iso 2 GM/50 ML PIGGYBACK IV (17:28)
[2024-04-11] MEDS: Insulin Lispro 100 UNIT/ML 3 ML VIAL SUBCUT ×2 (17:29→20:41)
[2024-04-11] MEDS: HYDROmorphone HCl 0.5 MG/0.5 ML SYRINGE 0.25 MG IVPUSH (17:42)
[2024-04-11] MEDS: oxyCODONE HCl Immed Release 5 MG TABLET 10 MG PO ×2 (18:30→22:21)
[2024-04-11] MEDS: Docusate Sodium 100 MG CAPSULE PO (19:48)
[2024-04-11] MEDS: Gabapentin 100 MG CAPSULE PO (19:48)
[2024-04-11] MEDS: metFORMIN HCl 1,000 MG TABLET 1000 MG PO (19:48)
[2024-04-11] MEDS: Celecoxib 200 MG CAPSULE PO (19:48)
[2024-04-11] MEDS: Atorvastatin Calcium 40 MG TABLET PO (19:49)
[2024-04-11 20:30] LABS: Glucose, Whole Blood 252 mg/dL (60-115)
[2024-04-11] MEDS: Insulin Glargine,Hum.rec.anlog 100 UNIT/ML 10 ML VIAL 19 UNIT SUBCUT (20:42)
[2024-04-11] MEDS: Acetaminophen 325 MG TABLET 650 MG PO (22:22)
[2024-04-12] VITALS (10 sets, daily range): BP systolic 99–161; BP diastolic 52–74; PULSE 67–94; RESP 16–18; TEMP 36.1–37.4; O2SAT 95–99
[2024-04-12] MEDS: ceFAZolin Sodium/Dextrose,Iso 2 GM/50 ML PIGGYBACK IV (00:40)
[2024-04-12] MEDS: 0.9 % Sodium Chloride Flush 3 ML SYRINGE IVFLUSH ×2 (00:40→20:21)
[2024-04-12] MEDS: oxyCODONE HCl Immed Release 5 MG TABLET 10 MG PO ×3 (05:53→17:51)
[2024-04-12] MEDS: Acetaminophen 325 MG TABLET 650 MG PO (05:53)
[2024-04-12] MEDS: Lactated Ringers 1,000 ML 100 ML IVCONT (06:19)
[2024-04-12 06:48] LABS: MANUAL DIFF FLAG NO
[2024-04-12 06:53] LABS: Basophils Absolute Auto 0.1 X10*3/uL (0.0-0.2); Basophils Percent Auto 0.5 % (0-2); Eosinophils Absolute Auto 0.1 X10*3/uL (0.0-0.4); Eosinophils Percent Auto 0.4 % (0-4); Hematocrit 33.9 % (42.0-52.0); Hemoglobin 11.2 g/dl (14.0-18.0); Imm Gran Abs Auto 0.05 X10*3/uL (0.00-0.03); Imm Gran Pct Auto 0.4 % (0.0-0.4); Lymphocytes Absolute Auto 1.2 X10*3/uL (1.2-4.9); Lymphocytes Percent Auto 8.6 % (20-40); Mean Corpuscular Hemoglobin 24.3 pg (27.0-33.0); Mean Corpuscular Volume 73.5 fL (80.0-98.0); Monocytes Absolute Auto 1.4 X10*3/uL (0.1-1.2); Monocytes Percent Auto 9.9 % (2-11); Neutrophils Absolute Auto 11.1 x10*3/uL (2.0-8.3); Neutrophils Percent Auto 80.2 % (45-73); Platelet Count 284 X10*3/uL (160-400); Red Blood Count 4.61 X10*6/uL (4.60-5.80); Red Cell Distribution Width 14.1 % (11.0-16.0); White Blood Count 13.8 X10*3/uL (4.8-10.8)
[2024-04-12 07:13] LABS: Anion Gap 15 (12-20); Blood Urea Nitrogen 26 mg/dL (9-16); Calcium 8.7 mg/dL (8.4-10.2); Carbon Dioxide 20 mmol/L (22-29); Chloride 107 mmol/L (96-108); Creatinine Clr Calc Pharmacy 79.1; Estimated Glomerular Filt Rate > 60; Glucose Fasting 184 mg/dL (60-99); Potassium 4.3 mmol/L (3.3-5.1); Sodium 138 mmol/L (135-145)
[2024-04-12 07:33] LABS: Glucose, Whole Blood 190 mg/dL (60-115)
--- NOTE | 2024-04-12 08:40 | HO.POSTANES ---
Post Anesthesia Evaluation Post Anesthesia Evaluation Date of Service: 04/11/24 Vital Signs: Vital Signs Temp Pulse Resp BP Pulse Ox O2 Del Method 04/12/24 08:37 67 138/62 04/12/24 08:36 83 144/74 H 04/12/24 07:42 73 145/70 H 04/12/24 07:33 75 99/52 L 98 04/12/24 07:27 96.9 F 75 18 99/52 L 98 Room Air 04/12/24 03:44 98.8 F 94 18 124/58 L 97 Room Air Anesthesia: Spinal Mental Status: Awake Pain Control: Satisfactory Nausea/Vomiting: None Hydration: Adequate Anesthesia-Related Issues: No Anes. Related Issues
[2024-04-12] MEDS: Aspirin 325 MG TABLET PO ×2 (08:53→20:17)
[2024-04-12] MEDS: metFORMIN HCl 1,000 MG TABLET 1000 MG PO ×2 (08:53→20:18)
[2024-04-12] MEDS: amLODIPine Besylate 5 MG TABLET PO (08:53)
[2024-04-12] MEDS: Docusate Sodium 100 MG CAPSULE PO ×2 (08:53→20:17)
[2024-04-12] MEDS: Celecoxib 200 MG CAPSULE PO ×2 (08:53→20:16)
[2024-04-12] MEDS: Insulin Lispro 100 UNIT/ML 3 ML VIAL SUBCUT ×3 (08:55→20:15)
[2024-04-12] MEDS: methocarbamoL 500 MG TABLET PO ×3 (09:00→20:17)
[2024-04-12 11:32] LABS: Glucose, Whole Blood 265 mg/dL (60-115)
--- NOTE | 2024-04-12 11:57 | MHC.CM.PN ---
Addendum entered by Bijal Bonner 04/12/24 12:38: PT WILL GO HOME WITH [facility] Original Note: PT LIVES WITH FAMILY IS INDEPEDENT AND WORKING HAS OWN RIDE HOME
--- NOTE | 2024-04-12 15:14 | PM.DS ---
DS: Providers Provider Date of Service: 04/13/24 Primary care physician: Deann Skaggs MD Consults: 04/11/24 14:06 Consult to Hospitalist Routine Comment: Consulting Provider: Hospitalist Reason For Exam: Routine medical managment DS: Diagnosis Discharge Diagnosis (1) Arthritis of right knee: Status: Acute DS: Summary Hospital Course Hospital Course: The patient underwent a successful right total knee arthroplasty, they were transferred to PACU and then to the floor to recover. During their stay, their vitals were stable, afebrile at 99.1. Labs were unremarkable, H/H 11.1/34.4. POD 1 they were started on Aspirin 325mg po bid for DVT ppx, they also received Physical Therapy services twice a day. Prior to discharge, their dressing was clean dry and intact, and the plan was to be discharged home with VNA services. Time Attestation Discharge Coordination Time (in mins): 30 Quality: Safe Use of Opioids Does Pt have an Active Cancer Diagnosis on the Problem List?: No Quality: Stroke Does the patient have a stroke diagnosis?: No Physical Exam Vital Signs: Vital Signs: Last Vital Signs Temp 96.9 F 04/12/24 07:27 Pulse 67 04/12/24 08:37 Resp 18 04/12/24 07:27 BP 138/62 04/12/24 08:37 Pulse Ox 99 04/12/24 13:48 O2 Del Method Room Air 04/12/24 12:43 BMI result Body Mass Index 30.0 Const: General: cooperative, healthy appearing and no acute distress Resp: Effort & Inspection: normal respiratory effort and able to speak in complete sentences Cardio: Rate: regular rate Peripheral pulses: Peripheral pulses 2+ throughout GI: Palpation (GI): Soft to palpation Skin: Lesions: no lesions Rashes: no rashes Extrem: Other: right knee dressing is c/d/i. Able to dorsi/plantar flex. Calf is supple and nontender. Sensation intact. Pedal pulse intact. DS: Data Data Completed and Pending Pending studies at discharge: Pending at discharge 04/11/24 11:55 Surgical [PTH] Routine Labs on day of discharge: Laboratory Results - last 24 hr 04/11/24 04/11/24 04/12/24 16:22 20:18 05:25 WBC 13.8 H RBC 4.61 Hgb 11.2 L Hct 33.9 L MCV 73.5 L MCH 24.3 L MCHC 33.0 RDW 14.1 Plt Count 284 MPV 11.0 Immature Gran % (Auto) 0.4 Neut % (Auto) 80.2 H Lymph % (Auto) 8.6 L [place] % (Auto) 9.9 Eos % (Auto) 0.4 Baso % (Auto) 0.5 Lymph # (Auto) 1.2 [place] # (Auto) 1.4 H Eos # (Auto) 0.1 Baso # (Auto) 0.1 Abs Immat Gran (auto) 0.05 H Absolute Neuts (auto) 11.1 H Absolute Nucleated RBC 0.000 Nucleated RBC % (auto) 0.0 Sodium 138 Potassium 4.3 Chloride 107 Carbon Dioxide 20 L Anion Gap 15 BUN 26 H Creatinine 0.98 Estim Creat Clear Calc 79.1 Estimated GFR > 60 POC Glucose 215 H 252 H Fasting Glucose 184 H Calcium 8.7 D 04/12/24 04/12/24 07:25 11:23 WBC RBC Hgb Hct MCV MCH MCHC RDW Plt Count MPV Immature Gran % (Auto) Neut % (Auto) Lymph % (Auto) [place] % (Auto) Eos % (Auto) Baso % (Auto) Lymph # (Auto) [place] # (Auto) Eos # (Auto) Baso # (Auto) Abs Immat Gran (auto) Absolute Neuts (auto) Absolute Nucleated RBC Nucleated RBC % (auto) Sodium Potassium Chloride Carbon Dioxide Anion Gap BUN Creatinine Estim Creat Clear Calc Estimated GFR POC Glucose 190 H 265 H Fasting Glucose Calcium Discharge Plan Discharge Patient Disposition: Home, Self-Care Referrals: Paige Crook PA-C [Physician Cooking Casing And Drying Supervisor] - 04/28/24 3:00 pm Discharge Medications: New celecoxib 200 mg Capsule 200 mg PO BID 30 Days Qty: 60 0RF methocarbamol 500 mg Tablet 500 mg PO TID 7 Days Qty: 21 0RF acetaminophen 325 mg Tablet 650 mg PO Q6H PRN (Reason: Pain, Mild (Pain Scale 1-3), fever or headache) 30 Days Qty: 240 0RF aspirin 325 mg Tablet 325 mg PO BID 42 Days Qty: 84 0RF gabapentin 100 mg Capsule 100 mg PO BEDTIME 7 Days Qty: 7 0RF oxycodone 10 mg tablet 10 mg PO Q4H PRN (Reason: Pain, Moderate(Pain Scale 4-6)) 7 Days Qty: 42 0RF Rx Instructions: Partial Fill upon patient request. docusate sodium 100 mg Capsule 100 mg PO BID 30 Days Qty: 60 0RF Continued metformin 1,000 mg tablet 1,000 mg PO BID 90 Days Qty: 180 3RF (DME) walker Misc See Rx Instructions .ROUTE .MEDSUPPLY Qty: 1 0RF Rx Instructions: Folding front wheeled walker atorvastatin 40 mg tablet 40 mg PO BEDTIME insulin glargine [Lantus Solostar U-100 Insulin] 100 unit/mL (3 mL) insulin pen 25 unit subcut BEDTIME lisinopril-hydrochlorothiazide 20-25 mg tablet 1 tab PO DAILY amlodipine 5 mg tablet 5 mg PO DAILY Jorge Discontinued acetaminophen 500 mg tablet 1,000 mg PO Q8H PRN (Reason: Pain) naproxen 500 mg tablet 500 mg PO BID PRN (Reason: pain) 30 Days Qty: 60 0RF Discharge Orders: Discharge Order (Routine); Ordered 04/13/24 Ordered By: Paige Crook Diet: Advance to usual diet Activity on Discharge: Use cane or walker Activity Restrictions/Additional Instructions: Physical Therapy for ROM 0-120, quad strength, gait training. Use walker for ambulation Limit stair climbing, No shower, No tub bath, No driving Continue anticoagulant x 6 weeks Keep Aquacel dressing clean, dry and intact. Follow up with orthopedics in 2 weeks Print Language: Setswana
--- NOTE | 2024-04-12 15:15 | P.F2F_ITS ---
Service Date Service Date: 04/12/24 Encounter Date of encounter: 04/13/24 Reasons for Services Signs and symptoms assessed: s/p RTKA Pt. is considered homebound due to recent surgery. Unable to drive, poor balance, poor gait mechanics. Reason for physical therapy: home safety and mobility, therapeutic exercises, restore joint function, gait/transfer training, assess need for DME and ADL training Reason for occupational therapy: home safety and mobility, therapeutic exercises, restore joint function, gait/transfer training, assess need for DME and ADL training Homebound: Leaving the home is medically contraindicated at this time without the asist of a device and/or another person due th the listed conditions above and below. Reason homebound: unsteady gait / fall risk, leg weakness, pain with ambulation, poor balance / fall risk and unable to drive Certification: Based on the above findings, I certify that this patient is confined to the home and needs intermittent [facility] care, physical therapy and/or speech therapy, or continues to need occupational therapy. The patient is under my care, and I have initiated the establishment of the plan of care. The patient will be followed by a physician who will periodically review the plan of care. Time Spent With Patient Time: Total time managing care of this patient today ____ minutes.
[2024-04-12 16:27] LABS: Glucose, Whole Blood 149 mg/dL (60-115)
[2024-04-12 20:12] LABS: Glucose, Whole Blood 259 mg/dL (60-115)
[2024-04-12] MEDS: Insulin Glargine,Hum.rec.anlog 100 UNIT/ML 10 ML VIAL 19 UNIT SUBCUT (20:15)
[2024-04-12] MEDS: Atorvastatin Calcium 40 MG TABLET PO (20:18)
[2024-04-12] MEDS: Gabapentin 100 MG CAPSULE PO (20:18)
--- NOTE | 2024-04-12 21:30 | PC.NURSE ---
This RN assumed care at 1900, pt sitting in recliner, resting comfortably, reporting tolerable pain at 4/10, S/P RTKA. Pedal pulses palpable, respirations even and non-labored. Pt calm, cooperative, call sands in reach
[2024-04-13] MEDS: HYDROmorphone HCl 0.5 MG/0.5 ML SYRINGE IVPUSH ×2 (02:39→03:54)
[2024-04-13 03:32] VITALS: BP 177/77; PULSE 72; RESP 18; TEMP 37.3; O2SAT 99
--- NOTE | 2024-04-13 04:00 | PC.NURSE ---
Pt in alot of pain 06/09, dilaudid order says give 0.25 with no effect give other 0.25. Pt had no effect with first dose, second dose given, per MAR. Going to call pharmacy to change order per OCT.
[2024-04-13 06:54] LABS: Basophils Absolute Auto 0.1 X10*3/uL (0.0-0.2); Basophils Percent Auto 0.7 % (0-2); Eosinophils Absolute Auto 0.3 X10*3/uL (0.0-0.4); Eosinophils Percent Auto 2.3 % (0-4); Hematocrit 34.4 % (42.0-52.0); Hemoglobin 11.1 g/dl (14.0-18.0); Imm Gran Abs Auto 0.05 X10*3/uL (0.00-0.03); Imm Gran Pct Auto 0.4 % (0.0-0.4); Lymphocytes Absolute Auto 2.5 X10*3/uL (1.2-4.9); Lymphocytes Percent Auto 20.1 % (20-40); MANUAL DIFF FLAG SCAN; Mean Corpuscular HGB Conc 32.3 g/dl (31.0-36.0); Mean Corpuscular Hemoglobin 23.7 pg (27.0-33.0); Mean Corpuscular Volume 73.5 fL (80.0-98.0); Monocytes Absolute Auto 1.8 X10*3/uL (0.1-1.2); Monocytes Percent Auto 14.3 % (2-11); Neutrophils Absolute Auto 7.6 x10*3/uL (2.0-8.3); Neutrophils Percent Auto 62.2 % (45-73); Platelet Count 285 X10*3/uL (160-400); Red Blood Count 4.68 X10*6/uL (4.60-5.80); Red Cell Distribution Width 14.5 % (11.0-16.0); SCAN SMEAR FLAG 1; White Blood Count 12.3 X10*3/uL (4.8-10.8)
[2024-04-13 07:15] LABS: Anion Gap 13 (12-20); Blood Urea Nitrogen 19 mg/dL (9-16); Calcium 9.3 mg/dL (8.4-10.2); Carbon Dioxide 25 mmol/L (22-29); Chloride 104 mmol/L (96-108); Creatinine Clr Calc Pharmacy 78.3; Estimated Glomerular Filt Rate > 60; Glucose Fasting 180 mg/dL (60-99); Potassium 4.3 mmol/L (3.3-5.1); Sodium 138 mmol/L (135-145)
[2024-04-13 07:49] VITALS: BP 177/81; PULSE 86; RESP 18; TEMP 36.8; O2SAT 95
[2024-04-13] MEDS: oxyCODONE HCl Immed Release 5 MG TABLET 10 MG PO (07:49)
[2024-04-13] MEDS: Aspirin 325 MG TABLET PO (07:50)
[2024-04-13] MEDS: amLODIPine Besylate 5 MG TABLET PO (07:51)
[2024-04-13] MEDS: Docusate Sodium 100 MG CAPSULE PO (07:51)
[2024-04-13] MEDS: methocarbamoL 500 MG TABLET PO (07:51)
[2024-04-13] MEDS: metFORMIN HCl 1,000 MG TABLET 1000 MG PO (07:51)
[2024-04-13] MEDS: Celecoxib 200 MG CAPSULE PO (07:51)
[2024-04-13] MEDS: 0.9 % Sodium Chloride Flush 3 ML SYRINGE IVFLUSH (07:53)
[2024-04-13] MEDS: Insulin Lispro 100 UNIT/ML 3 ML VIAL SUBCUT (07:59)
[2024-04-13] MEDS: Acetaminophen 325 MG TABLET 650 MG PO (08:00)
[2024-04-13 08:09] LABS: Glucose, Whole Blood 208 mg/dL (60-115)
[2024-04-13 08:19] LABS: SLIDE REVIEW VERIFIED
[2024-04-13 09:07] LABS: Glucose, Whole Blood 224 mg/dL (60-115)
[2024-04-13 09:48] VITALS: BP 177/81; PULSE 86; O2SAT 95
[2024-04-13 11:13] LABS: Glucose, Whole Blood 249 mg/dL (60-115)
== END 2024-04-13 11:52 | disposition home or self-care (01) ==
LOC: HO.SSS 11:01 → HO.S3 11:11 → HO.SSS 14:24
PROVIDERS: Physician Assistant; PCP Internal Medicine; Visit Provider Orthopaedic Surgery
PROC: (CPT 27447; principal; 2024-04-11 10:30)
DX: M17.11 Unilateral primary osteoarthritis, right knee (principal); M25.561 Pain in right knee; I10 Essential (primary) hypertension; E78.00 Pure hypercholesterolemia, unspecified; E11.9 Type 2 diabetes mellitus without complications; Z79.4 Long term (current) use of insulin; Z79.84 Long term (current) use of oral hypoglycemic drugs; Z79.85 Long-term (current) use of injectable non-insulin antidiabetic drugs; Z79.899 Other long term (current) drug therapy
CPT/HCPCS: 27447; 36415; 80048; 82947; 85025; 86850; 86900; 86901; 87640; 87641; 88305; 88311; 97110; 97116; 97162; C1776; J0131; J0665; J0690; J1100; J1170; J2250; J2371; J2704; J3370; J3371; J7120

== ENCOUNTER → 2024-04-11 06:01 | Outpatient (BNV) | payer MEDICARE, MEDICAID, SELFPAY | PROVIDERS: PCP Internal Medicine; Visit Provider Orthopaedic Surgery | DX: Z47.1 Aftercare following joint replacement surgery (principal); Z96.651 Presence of right artificial knee joint; M17.11 Unilateral primary osteoarthritis, right knee | CPT/HCPCS: 27447; 99024; G0180 ==

== ENCOUNTER → 2024-04-11 06:01 | Outpatient (BNV) | payer MEDICARE, MEDICAID, SELFPAY | PROVIDERS: PCP Internal Medicine; Visit Provider Physician Assistant | DX: M17.11 Unilateral primary osteoarthritis, right knee (principal); E11.9 Type 2 diabetes mellitus without complications; I10 Essential (primary) hypertension | CPT/HCPCS: 99222 ==

== ENCOUNTER 2024-04-28 13:55 | Outpatient (REF) | payer MEDICARE, MEDICAID, SELFPAY ==
--- NOTE | ~2024-04-28 | XR_ITS ---
EXAM: X-RAY BILATERAL KNEES CLINICAL INFORMATION: Pain COMPARISON: 02/17/2024 right knee TECHNIQUE: AP standing view of bilateral knees as well as sunrise and lateral views of the right knee. FINDINGS: Right knee: Postsurgical changes with anterior yousuf, soft tissue swelling and joint effusion status post right knee total arthroplasty. Hardware appears intact. AP standing view of the left knee demonstrates mild narrowing of the medial compartment. XR/XR knee LT 1V IMPRESSION: 1. Postsurgical changes status post right knee total arthroplasty. Hardware appears intact. 2. Mild narrowing of the medial compartment of the left knee. Electronically signed by: Fely Shepherd MD 05/18/2024 09:09 AM EDT
--- NOTE | ~2024-04-28 | XR_ITS ---
EXAM: X-RAY BILATERAL KNEES CLINICAL INFORMATION: Pain COMPARISON: 02/17/2024 right knee TECHNIQUE: AP standing view of bilateral knees as well as sunrise and lateral views of the right knee. FINDINGS: Right knee: Postsurgical changes with anterior yousuf, soft tissue swelling and joint effusion status post right knee total arthroplasty. Hardware appears intact. AP standing view of the left knee demonstrates mild narrowing of the medial compartment. XR/XR knee RT 3V IMPRESSION: 1. Postsurgical changes status post right knee total arthroplasty. Hardware appears intact. 2. Mild narrowing of the medial compartment of the left knee. Electronically signed by: Fely Shepherd MD 05/18/2024 09:09 AM EDT
== END 2024-04-28 13:56 | disposition home or self-care (01) ==
LOC: HO.HOSX 13:55
PROVIDERS: PCP Internal Medicine; Visit Provider Physician Assistant
DX: M25.561 Pain in right knee (principal); Z47.1 Aftercare following joint replacement surgery; Z96.651 Presence of right artificial knee joint
CPT/HCPCS: 73560; 73562; 99212

== ENCOUNTER 2024-04-28 14:40 | Outpatient (AMB) | payer MEDICARE, MEDICAID, SELFPAY ==
--- NOTE | 2024-04-28 15:00 | A.OFFVIS_ITS ---
Intake Visit Reasons: 2WK PO: R TKA w/ 04/11/24 Intake Note: Sofi is a 63 year old male who presents today for a post operative appointment s/p Right TKA 04/11/24 Allergies No Known Allergies Allergy (Verified 04/11/24 08:44) HPI HPI 2WK PO: R TKA w/ 04/11/24: Details: 63-year-old male who presents in the office today 17 days status post right total knee arthroplasty, which was performed on 04/11/[address] Loera. ? 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 Stephan are intact. No surrounding erythema or drainage. No signs of infection. ROM is 0-110 degrees. NVI. Assessment & Plan Assessment & Plan (1) S/P total knee arthroplasty: Comment: Right Code(s): Z96.659 - Presence of unspecified artificial knee joint Category: Surgical Plan Mr. Sol is a 63-year-old male who presents in the office today 17 days status post right total knee arthroplasty, which was performed on 04/11/[address] Jermain penn. ? ? [place] removed steri-strips were applied.I sent a prescription for an antibiotic prophylactically for possible dental work in the future. However, the patient was educated they should not have any major dental work for the first 3 months post op after a right total knee arthroplasty.? ? Follow-up will be in four weeks with Dr. Loera, or sooner if needed. ? Orders: Orders XR knee RT 3V Today M25.569 - Pain in unspecified knee XR knee LT 1V Today M25.569 - Pain in unspecified knee Medications: New amoxicillin 2,000 mg (4 x 500 mg) PO ONCE 4 tabs 0RF take 4 tabs by mouth 1 hour prior to dental ppx 1 day Patient Instructions: Scribed by Angelica Rojas medical equipment repairer, for Paige Crook PA-C on 04/28/2024 at 2:49 pm, EST.? Coding Level of Care Code Complex EM visit Add On G2211 Diagnoses S/P total knee arthroplasty Z96.659
== END 2024-04-28 15:17 | disposition home or self-care (01) ==
PROVIDERS: PCP Family Medicine; Visit Provider Physician Assistant
DX: Z96.659 Presence of unspecified artificial knee joint (principal)
CPT/HCPCS: 99024

== ENCOUNTER 2024-05-19 14:04 | Outpatient (AMB) | payer MEDICARE, MEDICAID, SELFPAY ==
--- NOTE | 2024-05-19 14:07 | MHC.OFFVIS ---
Intake Visit Reasons: 6WK PO: R TKA w/ 04/11/24 Intake Note: Enrique is a 63 year old male who presents with complaints of mild to moderate discomfort in his right knee after undergoing right total knee replacement surgery on 04/11/2024. Continues with his physical therapy exercises. He denies any fevers or chills. He does take oxycodone as needed for his discomfort. Allergies No Known Allergies Allergy (Verified 05/19/24 14:11) Medication List - Last Reconciled 05/20/24 by Ozzie Loera MD acetaminophen 650 mg (2 x 325 mg) PO Q6H PRN 30 days amlodipine 5 mg PO DAILY amoxicillin 2,000 mg (4 x 500 mg) PO ONCE 1 day aspirin 325 mg PO BID 42 days atorvastatin 40 mg PO BEDTIME celecoxib 200 mg PO BID 30 days docusate sodium 100 mg PO BID 30 days gabapentin 100 mg PO BEDTIME 7 days insulin glargine (Lantus Solostar U-100 Insulin) 25 units subcut BEDTIME lisinopril-hydrochlorothiazide 20-25 mg 1 tab PO DAILY metformin 1,000 mg PO BID 90 days methocarbamol 500 mg PO TID 7 days [Mounjaro ] oxycodone 10 mg PO Q4H PRN 7 days oxycodone 5 mg PO Q6H PRN walker Folding front wheeled walker [facility] Medical History Arthritis HTN (hypertension) High cholesterol Diabetes Surgical History H/O colonoscopy No pertinent past surgical history Social History Household Members: Spouse and Children Housing: House Are you a primary hemodialysis patient care specialist to a significant other at home: No Do you presently have visiting nurse or other home services: No Alcohol intake: former Patient Tobacco Use Status: Never used Tobacco service: No Current occupational status: employed 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 Sol continues to do well after undergoing right total knee replacement surgery on 04/11/2024. He will continue with his physical therapy exercises. He does know to take antibiotics before any dental work. I did refill his prescription for oxycodone. He will contact me prior to his follow-up appointment in 6 weeks should any questions or concerns arise. Feel free to call me at any time should questions regarding his orthopedic management arise. Medications: New oxycodone Partial Fill upon patient request. 5 mg PO Q6H PRN 40 tabs 0RF pain Coding Level of Care Code Global (32372) Diagnoses Right knee pain M25.561
== END 2024-05-19 14:39 | disposition home or self-care (01) ==
PROVIDERS: PCP Family Medicine; Visit Provider Orthopaedic Surgery
DX: M25.561 Pain in right knee (principal)
CPT/HCPCS: 99024

== ENCOUNTER → 2024-05-19 14:04 | Outpatient (BNVA) | payer MEDICARE, MEDICAID, SELFPAY | PROVIDERS: PCP Family Medicine; Visit Provider Orthopaedic Surgery | DX: Z47.1 Aftercare following joint replacement surgery (principal); Z96.651 Presence of right artificial knee joint | CPT/HCPCS: 99212 ==

== ENCOUNTER 2024-06-22 12:48 | Outpatient (RCR) | payer MEDICARE, MEDICAID, SELFPAY ==
--- NOTE | 2024-05-25 14:01 | MHC.PT.EP ---
[facility] [place] Office [place] Office [place] Office [address] Nathalie Feldman [address] [phone] F: [phone] F: [phone] F: [phone] F: [phone] Physical Therapy Plan of Care Date of Evaluation: 05/25/24 Date of Surgery: 04/11/24 Diagnosis: TKR R Assessment: Pt IS 63 YO M REFERRED TO PT BY ORTHO (KRISTINE) S/P R TKR ON APR [address] CROSS. Pt WENT DIRECTLY HOME AFTER HOSPITAL STAY AND HAD PT FOR ABOUT 3 WKS. Pt REPORTS HE STOPPED DOING THE EXS AFTER HOME PT STOPPED. WHEN WENT FOR ORTHO FU, HE WAS RECOMMENDED TO OUTPt PT. PRESENTS AMBULATING WITH 1 CRUTCH ON L SIDE WITH ANTALGIC GT PATTERN. HAS DECENT ROM (0-124) R KNEE (ESPECIALLY CONSIDERING HE HAS NOT BEEN DOING ANY EXS). HAS LIMITED STRENGTH AND ENDURANCE R LE WITH CONTINUED PAIN AND SWELLING (HAS NOT BEEN ICING OR ELEVATING). Pt HAS BEEN OOW SINCE SURGERY (OWNS BUSINESS WITH COUSIN SO HE MAY/MAY NOT RTW. SHOULD BENEFIT FROM PT TO HELP RE-ESTABLISH HOME PROGRAM, WORK ON GT/BALANCE AND HELP REDUCE PAIN/SWELLING Frequency and Duration: The patient will be seen 2X/WK X 4 WKS Short Term Goals: 1.INCREASED AWARENESS KNEE CARE 2. I HEP WITH DC EX PLAN Snf Goals: 1. GT WITH GOOD PATTERN WITHOUT AD 2. DECREASED R KNEE PAIN AT LEAST 50% WITH ADLS 3. DECREASED R KNEE SWELLING NOTED (17.25 IN MID PAT SOC) 4. R KNEE ROM 0-130 Treatment Plan: Modalities to reduce pain, spasms and effusion. Manual therapy to restore motion and function. Therapeutic exercise to improve strength and flexibility. Neuromuscular re-education for posture and balance. Therapeutic activities to return to functional activities of daily living. Electronically signed by: LAURA ROBERT PT Please sign and return to therapist. Thank you for your referral.
--- NOTE | 2024-07-19 10:26 | MHC.PT.DC ---
[facility] [place] Office [place] Office [place] [facility] [address] Nathalie Feldman [address] [phone] F: [phone] F: [phone] F: [phone] F: [phone] Physical Therapy Discharge Report Diagnosis: R TKA Date of Surgery: 04/11/24 Date of Evaluation: 05/25/24 Date of Discharge: 07/19/24 Treatments to Date: 9 Cancellations to Date: No Shows to Date: Discharge Status: Improved Function Independent with HEP Patient Elected to Stop Discharge Summary: PER ASSESSMENT FROM LAST SESSION ON 06/22/24 ?LLD ?BENEFIT FROM LIFT CONTINUES WITH JOHNSON AND SIGNIF FATIGUE AT END OF SESSION (? EX PERF AT HOME) NO FURTHER APPTS SCHEDULED (?). NOTED THAT Pt SAW ORTHO SURGEON ON 07/05 AND WAS RECOMMENDED TO CONT PT AT HOME. ON 07/19/24, THIS PT CALLED Pt WHO REPORTS HE IS STILL HAVING SOME PAIN IN KNEE. IS GOING AWAY FOR 3 WKS AND WILL CALL WHEN HE RETURNS IF HE FEELS HE NEEDS FURTHER PT SESSIONS Electronically signed by: LAURA ROBERT PT Please sign and return to therapist. Thank you for your referral.
== END 2024-07-19 10:26 | disposition home or self-care (01) ==
LOC: HO.PTWFD 12:48
PROVIDERS: PCP Internal Medicine; Visit Provider Physician Assistant
DX: Z96.651 Presence of right artificial knee joint (principal)
CPT/HCPCS: 97014; 97110; 97116; 97140; 97161; 97530; 97535

== ENCOUNTER 2024-07-05 12:52 | Outpatient (AMB) | payer MEDICARE, MEDICAID, SELFPAY ==
--- NOTE | 2024-07-05 12:56 | A.OFFVIS_ITS ---
Intake Visit Reasons: 6 WK PO: R TKA w/ 04/11/24 Intake Note: Sofi is a 63 year old male who presents with complaints of mild intermittent discomfort in his right knee after undergoing right total knee replacement surgery on 04/11/2024. He continues with his physical therapy exercises at home. He has completed formal physical therapy. He denies any fevers or chills. He denies any locking or giving way. Allergies No Known Allergies Allergy (Verified 07/05/24 13:01) Medication List - Last Reconciled 07/05/24 by Ozzie Loera MD acetaminophen 650 mg (2 x 325 mg) PO Q6H PRN 30 days amlodipine 5 mg PO DAILY amoxicillin 2,000 mg (4 x 500 mg) PO ONCE 1 day aspirin 325 mg PO BID 42 days atorvastatin 40 mg PO BEDTIME celecoxib 200 mg PO BID 30 days docusate sodium 100 mg PO BID 30 days gabapentin 100 mg PO BEDTIME 7 days insulin glargine (Lantus Solostar U-100 Insulin) 25 units subcut BEDTIME lisinopril-hydrochlorothiazide 20-25 mg 1 tab PO DAILY metformin 1,000 mg PO BID 90 days methocarbamol 500 mg PO TID 7 days [Mounjaro ] walker Folding front wheeled walker [facility] Medical History Arthritis HTN (hypertension) High cholesterol Diabetes Surgical History H/O colonoscopy No pertinent past surgical history Social History Household Members: Spouse and Children Housing: House Are you a primary healthcare management to a significant other at home: No Do you presently have visiting nurse or other home services: No Alcohol intake: former Patient Tobacco Use Status: Never used Tobacco service: No Current occupational status: employed 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 Sol continues to do well after undergoing right total knee replacement surgery on 04/11/2024. He will continue with his home physical therapy exercises. He does know to take antibiotics before any dental work. He will contact me prior to his follow-up appointment in 2 months should any questions or concerns arise. Feel free to call me at any time should questions regarding his orthopedic management arise. Coding Level of Care Code Global (23887) Diagnoses Right knee pain M25.561
== END 2024-07-05 13:10 | disposition home or self-care (01) ==
LOC: HO.HOS 12:53
PROVIDERS: PCP Family Medicine; Visit Provider Orthopaedic Surgery
DX: M25.561 Pain in right knee (principal)
CPT/HCPCS: 99024

== ENCOUNTER → 2024-07-05 12:52 | Outpatient (BNVA) | payer MEDICARE, MEDICAID, SELFPAY | PROVIDERS: PCP Family Medicine; Visit Provider Orthopaedic Surgery | DX: M25.561 Pain in right knee (principal); Z47.1 Aftercare following joint replacement surgery; Z96.651 Presence of right artificial knee joint | CPT/HCPCS: 99212 ==

== ENCOUNTER 2024-09-06 13:07 | Outpatient (AMB) | payer MEDICARE, SELFPAY ==
[2024-09-06 13:11] VITALS: BMI 29.9
--- NOTE | 2024-09-06 13:11 | A.OFFVIS_ITS ---
Vital Signs 09/06/24 13:11 Height 5 ft 7 in Weight 191 lb BMI 29.9 Intake Visit Reasons: Right knee discomfort Intake Note: Sofi is a 63 year old male who presents for follow up after undergoing right total knee replacement surgery on 04/11/2024. He reports mild intermittent discomfort in his right knee. He continues with his home stretching program. He denies any fevers or chills. Allergies No Known Allergies Allergy (Verified 09/06/24 13:14) Medication List - Last Reconciled 09/06/24 by Ozzie Loera MD acetaminophen 650 mg (2 x 325 mg) PO Q6H PRN 30 days amlodipine 5 mg PO DAILY amoxicillin 2,000 mg (4 x 500 mg) PO ONCE 1 day aspirin 325 mg PO BID 42 days atorvastatin 40 mg PO BEDTIME celecoxib 200 mg PO BID 30 days docusate sodium 100 mg PO BID 30 days gabapentin 100 mg PO BEDTIME 7 days insulin glargine (Lantus Solostar U-100 Insulin) 25 units subcut BEDTIME lisinopril-hydrochlorothiazide 20-25 mg 1 tab PO DAILY metformin 1,000 mg PO BID 90 days methocarbamol 500 mg PO TID 7 days [Mounjaro ] walker Folding front wheeled walker [facility] Medical History Arthritis HTN (hypertension) High cholesterol Diabetes Surgical History H/O colonoscopy No pertinent past surgical history Social History Household Members: Spouse and Children Housing: House Are you a primary childcare attendant to a significant other at home: No Do you presently have visiting nurse or other home services: No Alcohol intake: former Patient Tobacco Use Status: Never used Tobacco service: No Current occupational status: employed 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 Sol continues to do very well after undergoing right total knee replacement surgery on 04/11/2024. He will continue with his home exercise program. He does know to take antibiotics before any dental work. He will contact me prior to his follow-up appointment in 3 months should any questions or concerns arise. Feel free to call me at any time should questions regarding his orthopedic management arise. I spent 21 minutes in reviewing the patient's records and imaging studies, seeing the patient and documenting in the medical record. Coding Level of Care Code Est Pt Level 3 (69283) Complex EM visit Add On G2211 Diagnoses Right knee pain M25.561
== END 2024-09-06 13:31 | disposition home or self-care (01) ==
PROVIDERS: PCP Family Medicine; Visit Provider Orthopaedic Surgery
DX: M25.561 Pain in right knee (principal)
CPT/HCPCS: 99213; G2211

== ENCOUNTER → 2024-09-06 13:07 | Outpatient (BNVA) | payer MEDICARE, MEDICAID, SELFPAY | PROVIDERS: PCP Family Medicine; Visit Provider Orthopaedic Surgery | DX: M25.561 Pain in right knee (principal) | CPT/HCPCS: 99212 ==

== ENCOUNTER 2024-12-28 12:41 | Outpatient (REF) | payer MEDICARE, SELFPAY ==
--- NOTE | ~2024-12-28 | XR_ITS ---
EXAMINATION: XR KNEE 3 VIEWS RIGHT HISTORY: M25.561 - Pain in right knee COMPARISON: Comparison is made with the prior examination dated 04/28/2024. FINDINGS: Three views of the right knee are submitted. The patient is again noted to be status post total knee arthroplasty. The orthopedic elements are in anatomic alignment. There is no radiographic evidence of loosening. There is no fracture or dislocation. The soft tissues are unremarkable. XR/XR knee RT 3V IMPRESSION: Status post right total knee arthroplasty. Electronically signed by: Nikko Awan MD 12/30/2024 08:11 AM EDT
== END 2024-12-28 12:42 | disposition home or self-care (01) ==
LOC: HO.HOSX 12:41
PROVIDERS: Visit Provider Orthopaedic Surgery
DX: M25.561 Pain in right knee (principal); Z96.651 Presence of right artificial knee joint
CPT/HCPCS: 73562; 99212

== ENCOUNTER 2024-12-28 13:10 | Outpatient (AMB) | payer MEDICARE, SELFPAY ==
--- NOTE | 2024-12-28 13:20 | MHC.OFFVIS ---
Vital Signs 12/28/24 13:24 Height 5 ft 7 in Weight 191 lb BMI 29.9 Intake Visit Reasons: OV-R TKA w/DR 04/11/24-follow up Intake Note: Sofi is a 64 year old male who presents with complaints of mild intermittent discomfort in his right knee after undergoing right total knee replacement surgery on 04/11/2024. He continues with his home exercise program. He does not take any medicines for his discomfort. He denies any fevers or chills. Allergies No Known Allergies Allergy (Verified 12/28/24 13:24) Medication List - Last Reconciled 12/28/24 by Ozzie Loera MD acetaminophen 650 mg (2 x 325 mg) PO Q6H PRN 30 days amlodipine 5 mg PO DAILY amoxicillin 2,000 mg (4 x 500 mg) PO ONCE 1 day aspirin 325 mg PO BID 42 days atorvastatin 40 mg PO BEDTIME celecoxib 200 mg PO BID 30 days docusate sodium 100 mg PO BID 30 days gabapentin 100 mg PO BEDTIME 7 days insulin glargine (Lantus Solostar U-100 Insulin) 25 units subcut BEDTIME lisinopril-hydrochlorothiazide 20-25 mg 1 tab PO DAILY metformin 1,000 mg PO BID 90 days methocarbamol 500 mg PO TID 7 days [Mounjaro ] walker Folding front wheeled walker [facility] Medical History Arthritis HTN (hypertension) High cholesterol Diabetes Surgical History H/O colonoscopy No pertinent past surgical history Social History Household Members: Spouse and Children Housing: House Are you a primary acute care assistant to a significant other at home: No Do you presently have visiting nurse or other home services: No Alcohol intake: former Patient Tobacco Use Status: Never used Tobacco service: No Current occupational status: employed 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- [employer] Physical Exam Vital Signs: BMI result Body Mass Index 29.9 Const Other: Well-nourished well-developed very friendly male awake alert and oriented x3 in no acute distress Extrem Other: Bilateral lower extremity examination shows good capillary refill, no skin lesions noted, normal sensation light touch Right knee examination shows that the surgical incision is well healed, no erythema, full active extension and flexion to 120 degrees, his patella tracks well Results Reviewed Results Reviewed: X-rays of the patient's right knee show a total knee arthroplasty in good position with no signs of loosening, no acute bony abnormalities Assessment & Plan Assessment & Plan (1) Right knee pain: Code(s): M25.561 - Pain in right knee Category: Medical Plan Mr. Sol continues to do very well after undergoing right total knee replacement surgery on 04/11/2024. He will continue with his home exercise program. He does know to take antibiotics before any dental work. He will contact me prior to his annual follow-up appointment should any questions or concerns arise. Feel free to call me at any time should questions regarding his orthopedic management arise. I spent 21 minutes in reviewing the patient's records and imaging studies, seeing the patient and documenting in the medical record. Orders: Orders XR knee RT 3V Today M25.561 - Pain in right knee Coding Level of Care Code Est Pt Level 3 (94692) Complex EM visit Add On G2211 Diagnoses Right knee pain M25.561
[2024-12-28 13:24] VITALS: BMI 29.9
== END 2024-12-28 13:34 | disposition home or self-care (01) ==
LOC: HO.HOS 13:10
PROVIDERS: PCP Family Medicine; Visit Provider Orthopaedic Surgery
DX: M25.561 Pain in right knee (principal); Z96.651 Presence of right artificial knee joint
CPT/HCPCS: 99213

== ENCOUNTER → 2024-12-28 13:11 | Outpatient (BNV) | payer MEDICARE, SELFPAY | PROVIDERS: Visit Provider Radiology Diagnostic Radiology | DX: M25.561 Pain in right knee (principal) | CPT/HCPCS: 73562 ==

== ENCOUNTER 2025-04-27 13:10 | Outpatient (AMB) | payer MEDICARE, SELFPAY ==
--- NOTE | 2025-04-27 13:14 | A.OFFVIS_ITS ---
Intake Visit Reasons: OV-R TKA w/ 04/11/24- follow up Intake Note: Sofi is a 64 year old male who presents with complaints of mild to moderate discomfort in his right knee after undergoing right total knee replacement surgery on 04/11/2024. The patient denies any recent trauma. He continues to walk for exercise. He takes Tylenol as needed for his discomfort. He denies any fevers or chills. He questions whether or not he would benefit from physical therapy. Allergies No Known Allergies Allergy (Verified 04/27/25 13:18) Medication List - Last Reconciled 04/27/25 by Ozzie Loera MD acetaminophen 650 mg (2 x 325 mg) PO Q6H PRN 30 days amlodipine 5 mg PO DAILY amoxicillin 2,000 mg (4 x 500 mg) PO ONCE 1 day aspirin 325 mg PO BID 42 days atorvastatin 40 mg PO BEDTIME celecoxib 200 mg PO BID 30 days docusate sodium 100 mg PO BID 30 days gabapentin 100 mg PO BEDTIME 7 days insulin glargine (Lantus Solostar U-100 Insulin) 25 units subcut BEDTIME lisinopril-hydrochlorothiazide 20-25 mg 1 tab PO DAILY metformin 1,000 mg PO BID 90 days methocarbamol 500 mg PO TID 7 days [Mounjaro ] walker Folding front wheeled walker [facility] Medical History Arthritis HTN (hypertension) High cholesterol Diabetes Surgical History H/O colonoscopy No pertinent past surgical history Social History Household Members: Spouse and Children Housing: House Are you a primary home health care respiratory therapist to a significant other at home: No Do you presently have visiting nurse or other home services: No Alcohol intake: former Patient Tobacco Use Status: Never used Tobacco service: No Current occupational status: employed 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 Sol presents with continued right knee discomfort after undergoing right total knee replacement surgery on 04/11/2024. The patient does not have any sign of infection. His symptoms are most likely due to continued inflammation and scar tissue formation. Thus, I did give him a prescription to go to formal physical therapy. I will also refer him to Dr. Cortes for possible nerve stimulation procedure. The patient will contact me prior to his follow-up appointment in 3 months should his symptoms worsen in any way. I spent 22 minutes in reviewing the patient's records and imaging studies, seeing the patient and documenting in the medical record. Orders: Orders PT Evaluation and Treatment 04/28/25 M25.561 - Pain in right knee Referrals Pain Management Referral M25.561 - Pain in right knee Coding Level of Care Code Est Pt Level 3 (01650) Complex EM visit Add On G2211 Diagnoses Right knee pain M25.561
--- OUTSIDE RECORDS SUMMARY | 2025-04-27 13:47 | XMS_ITS | Clinical Summary ---
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 Not on sanjuanita e 12/27/2022 Are you concerned about learning? Not on file 12/27/2022 No 12/27/2022 No 12/27/2022 Digital Access Answer Date Recorded No 01/25/2023 No 01/25/2023 Reliable internet access at home? Not on file 01/25/2023 Device with a working camera? Not on file Sex and Gender Information Value Date Recorded Sex Assigned at Not on file Legal Sex Male 11:04 AM EDT Gender Identity Not on file Sexual Orientation Not on file Last Filed Vital Signs Vital Sign Reading Time Taken Comments Blood Pressure 164/76 04/18/2022 8:03 PM EDT Pulse 74 04/18/2022 8:03 PM EDT Temperature - - Respiratory Rate 20 04/18/2022 8:03 PM EDT Oxygen Saturation 98% 04/18/2022 8:03 PM EDT Inhaled Oxygen Concentration - - Weight - - Height - - Body Mass Index - - Plan of Treatment Health Maintenance Due Date Last Done Comments Adult Td,Tdap Booster 1958 LIPID PANEL 1958 DEPRESSION SCREENING 1970 SMOKING Hx and SMOKELESS TOB ACCO SCREENING 1971 HEPATITIS C SCREENING 1976 COLOGUARD 2003 COLONOSCOPY 2003 COLORECTAL CANCER SCREENING 2003 FIT TEST 2003 FOBT 2003 SIGMOIDOSCOPY 2003 VIRTUAL COLONOSCOPY 2003 PNEUMOCOCCAL VACCINES (50+ y ears) (1 of 1 - PCV) 2008 ZOSTER VACCINES (1 of 2) 2008 COVID-19 VACCINE (1 - 2023-2 5 season) 2024 INFLUENZA VACCINE (#1) 2025 RSV VACCINE (1 - 1-dose 75+ series) 2033 HEPATITIS A VACCINES Aged Out No long er eligible based on patient's age to complete this topic HIB VACCINES Aged Out No longer eligi ble based on patient's age to complete this topic MENINGOCOCCAL VACCINES (ACWY) Aged Out No longer eligible based on patient's age to complete this topic MENINGOCOCCAL VACCINES (B) Aged Out N o longer eligible based on patient's age to complete this topic Medical Devices Not on file Insurance Publisha O Publisha [facility] [employer] [facility] [place] [address]Radio RebelOHIOHEALTH [facility] CoolCloudsOHIO[facility]ALTH [facility] CoolCloudsGOWANDA STATE [facility]OS[facility]ITALO Care Teams Walnut Dehydrator Operator Relationship Specialty Start Date End Date Pcp, Unknown PCP - General 04/18/22 Additional Source Comments The information contained in this document represents components of the legal health record. It is not the complete legal health record.[facility]
== END 2025-04-27 13:29 | disposition home or self-care (01) ==
LOC: HO.HOS 13:11
PROVIDERS: PCP Family Medicine; Visit Provider Orthopaedic Surgery
DX: M25.561 Pain in right knee (principal)
CPT/HCPCS: 99213; G2211

== ENCOUNTER → 2025-04-27 13:10 | Outpatient (BNVA) | payer MEDICARE, SELFPAY | PROVIDERS: PCP Family Medicine; Visit Provider Orthopaedic Surgery | DX: M25.561 Pain in right knee (principal) | CPT/HCPCS: 99212 ==

== ENCOUNTER 2025-05-22 12:58 | Outpatient (AMB) | payer MEDICARE, SELFPAY ==
[2025-05-22 13:01] VITALS: BP 118/54; PULSE 84; RESP 16; O2SAT 97; BMI 29.9
--- NOTE | 2025-05-22 13:01 | MHC.OFFVIS ---
Vital Signs 05/22/25 13:01 Height 5 ft 7 in Weight 191 lb BMI 29.9 BP 118/54 L Blood Pressure Location Lt brachial Position Sitting Respiration 16 Pulse 84 Pulse Source Pulse Oximeter Pulse Oximetry (%) 97 Oxygen Delivery Method Room Air Intake Visit Reasons: Pain in right knee Artist'S Model Required: No Allergies No Known Allergies Allergy (Verified 05/22/25 13:03) Medication List - Last Reconciled 05/22/25 by Chandrika Mas LPN acetaminophen 650 mg (2 x 325 mg) PO Q6H PRN 30 days amlodipine 5 mg PO DAILY amoxicillin 2,000 mg (4 x 500 mg) PO ONCE 1 day atorvastatin 40 mg PO BEDTIME celecoxib 200 mg PO BID 30 days docusate sodium 100 mg PO BID 30 days insulin glargine (Lantus Solostar U-100 Insulin) 25 units subcut BEDTIME lisinopril-hydrochlorothiazide 20-25 mg 1 tab PO DAILY metformin 1,000 mg PO BID 90 days [Mounjaro ] walker Folding front wheeled walker HPI HPI Pain in right knee: Details: History of Present Illness The patient is a 64-year-old male presenting with chronic knee pain following arthroplasty. The pain has persisted since the right knee arthroplasty performed in March 2024. The patient has developed Complex Regional Pain Syndrome (CRPS) around the right knee. There is tenderness to palpation, trophic skin changes, and swelling on the right knee compared to the left side. Pain Description - Onset: Persistent since right knee arthroplasty in March 2024 - Location: Right knee - Quality: Chronic pain with tenderness and sensitivity - Exacerbating factors: Not explicitly discussed - Relieving factors: Not explicitly discussed. Exhausted PT, oral medications, topical agents, surgical arthroplasty Physical Exam - Musculoskeletal: Tenderness to palpation and trophic skin changes on the right knee - Musculoskeletal: Tenderness to superficial palpation of the scar and sensitivity - Musculoskeletal: Swelling on the right knee compared to the left side [facility] Medical History Arthritis HTN (hypertension) High cholesterol Diabetes Surgical History H/O colonoscopy No pertinent past surgical history Social History Household Members: Spouse and Children Housing: House Are you a primary health care legal assistant to a significant other at home: No Do you presently have visiting nurse or other home services: No Alcohol intake: former Patient Tobacco Use Status: Never used Tobacco service: No Current occupational status: employed 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- [employer] Physical Exam Vital Signs: Last Vital Signs Pulse 84 05/22/25 13:01 Resp 16 05/22/25 13:01 BP 118/54 L 05/22/25 13:01 Pulse Ox 97 05/22/25 13:01 Oxygen Delivery Method Room Air 05/22/25 13:01 BMI result Body Mass Index 29.9 Assessment & Plan Assessment & Plan (1) CRPS (complex regional pain syndrome), lower limb: Code(s): G90.529 - Complex regional pain syndrome I of unspecified lower limb Category: Medical (2) Chronic pain: Code(s): G89.29 - Other chronic pain Category: Medical Plan Plan Patient was informed and verbally consented to the use of an ambient scribe for clinic note documentation during this visit. 1. Complex Regional Pain Syndrome Of The Right Knee - Temporary nerve stimulation of the right saphenous nerve is recommended for CRPS management. - If temporary PNS is not approved by insurance, consider a right lumbar sympathetic block. Discussion Notes The patient was informed about the diagnosis of Complex Regional Pain Syndrome (CRPS) of the right knee and the potential benefits of temporary nerve stimulation of the right saphenous nerve. If temporary PNS is not approved by insurance, a lumbar sympathetic block was discussed as an alternative option. The patient expressed understanding and agreement with the proposed plan. Coding Level of Care Code New Pt Level 3 (00679) Diagnoses CRPS (complex regional pain syndrome), lower limb G90.529 Chronic pain G89.29
== END 2025-05-22 13:35 | disposition home or self-care (01) ==
LOC: HO.PMC 12:58
PROVIDERS: PCP Family Medicine; Visit Provider Internal Medicine
DX: G90.521 Complex regional pain syndrome I of right lower limb (principal)
CPT/HCPCS: 99203

== ENCOUNTER → 2025-05-22 12:58 | Outpatient (BNVA) | payer MEDICARE, SELFPAY | PROVIDERS: PCP Family Medicine; Visit Provider Internal Medicine | DX: G90.521 Complex regional pain syndrome I of right lower limb (principal) | CPT/HCPCS: 99202 ==